=== PATIENT | male | born 1950 | race Caucasian/White ===

== ENCOUNTER 2018-03-08 10:49 | Day surgery (SDC) | payer MEDICARE, OTHER ==
[2018-03-01 13:28] VITALS: BMI 26.5
[~2018-03-08 10:49] MED LIST: ATROPINE SULFATE 0.4 MG/ML 1 ML VIAL IM ONE; LACTATED RINGERS 1,000 ML IV ONE; LACTATED RINGERS 1,000 ML IV SCH; LIDOCAINE 2% (PF) 20 MG/ML 2 ML AMP INHALATION ONE; LIDOCAINE VISCOUS 300 MG/15 ML CUP MUCOUS MEM ONE
[2018-03-08] MEDS ORDERED: GLYCOPYRROLATE 0.2 MG/ML 2 ML VIAL ONE (12:29)
[2018-03-08] MEDS ORDERED: PROPOFOL 10 MG/ML 20 ML VIAL IV ONE (12:29)
[2018-03-08] MEDS ORDERED: ROCURONIUM BROMIDE 10 MG/ML 10 ML VIAL IV ONE (12:29)
[2018-03-08] MEDS ORDERED: NEOSTIGMINE 1 MG/ML 10 ML VIAL ONE (12:29)
[2018-03-08] MEDS ORDERED: LIDOCAINE 1% INJ 10MG/ML (20 ML MDV) ONE (12:29)
[2018-03-08] MEDS ORDERED: MIDAZOLAM 2 MG/2 ML VIAL ONE (12:29)
[2018-03-08] MEDS ORDERED: fentaNYL (PF) 50 MCG/ML 2 ML AMP ONE (12:29)
[2018-03-08 14:28] VITALS: TEMP 97
[2018-03-08 14:30] VITALS: RESP 16
--- NOTE | 2018-03-08 14:59 | CT ---
EXAMINATION TYPE: CT Chest taras Donohue Protocol DATE OF EXAM: 03/08/2018 COMPARISON: None HISTORY: Bronchial navigation CT DLP: 537 mGycm Rykiel [address] Un[address] of the chest was performed with lung and mediastinal window settings submitted. The lack of contrast limits evaluation of the vascular, mediastinal and parenchymal struc tures including the upper abdomen. LUNGS: Pleural-based nodule right lower lobe posteriorly measuring 1.4 cm with peripheral spiculation . No additional nodules seen. No evidence for pleural effusion. No infiltrate or volume loss. MEDIASTINUM/NAA: Thoracic aorta is of normal caliber with limited evaluation given lack of contrast . The heart is not enlarged. No evidence for mediastinal mass. No lymph nodes greater than 1cm. UPPER ABDOMEN: No significant abnormality is seen. OTHER: No significant other abnormality. IMPRESSION: 1. Spiculated nodule right lower lobe pleural-based as noted.
--- NOTE | 2018-03-08 15:04 | XR ---
EXAMINATION TYPE: XR chest 1V portable DATE OF EXAM: 03/08/2018 HISTORY: Right lower lobe biopsy COMPARISON: None. TECHNIQUE: Single view of the chest is submitted. FINDINGS: No evidence for right-sided pneumothorax. Increased density right medial lung base. The heart is stable. Hilar and mediastinal structures are within normal limits. Degenerative changes are seen of the dorsal spine. IMPRESSION: 1. No evidence for right-sided pneumothorax. Increased density right medial lung base.
[2018-03-08 15:42] VITALS: BP 142/81; PULSE 55
--- NOTE | 2018-03-08 21:51 | OP ---
OPERATIVE REPORT Navigational bronchoscopy. OPERATORS: Dr. Lawrence and Dr. Baker. The patient's procedure took place in operating room #2 [facility]. REGISTERED NURSE SUPERVISOR/anesthesiologist provided general anesthesia. There was informed consent. There was universal timeout. After the patient was adequately under the effects of general anesthesia, the bronchoscope was inserted through the bronchoscope adapter connected to the endotracheal tube. With the variant electromagnetic navigational bronchoscopy equipment, we were able to pinpoint the lesion in the superior basal segment of the right lower lobe. Unfortunately, we only got 1 biopsy from this area. We were not able to come in contact with the lesion. Subsequently, we did do washes and brushes in this area as well. We spent about an hour or so or more trying to pinpoint this lesion and locate the lesion precisely, but again we had a difficult time doing so. We were not able to get any needle biopsies as well. The patient tolerated the procedure well. There was minimal bleeding. The bleeding stopped on its own. The bronchoscope was withdrawn. The patient will be recovered. I will talk to the patient's sister, who brought the patient today. MMODL / IJN: [id number] /
== END 2018-03-08 15:55 | disposition home or self-care (01) ==
LOC: ORWHC2ENDO 10:49
PROVIDERS: ATTEND Internal Medicine Critical Care Medicine
DX: R91.1 Solitary pulmonary nodule (principal); Z85.46 Personal history of malignant neoplasm of prostate; Z90.79 Acquired absence of other genital organ(s); Z87.891 Personal history of nicotine dependence
CPT/HCPCS: 87798 ×3; 87496; 87498; 87529 ×2; 88104; 88108; 88305; 87252; 87502; 87634; 87070; 87205; 87116; 87102; 87206; 71045; 71250; 31625; 31623; 31627; J2250; J2710; J2001; J3010; J2704

== ENCOUNTER → 2018-03-10 | Outpatient (CLI) | payer MEDICARE, OTHER ==
--- NOTE | 2018-03-12 08:27 | PE ---
EXAMINATION TYPE: PET CT fusion skull to thigh DATE OF EXAM: 03/10/2018 COMPARISON: Chest CT 2 days earlier. HISTORY: Solitary pulmonary nodule per order. History of prostate cancer. Newly diagnosed cancer on right lung biopsy 2 days earlier. TECHNIQUE: Following the intravenous administration of 12.265 mCi of F-18 FDG, whole body images are performed from the skull base to the midthigh. Images are reviewed on the computer in the coronal, axial, and sagittal planes. Reconstructed rotating images are created on independent workstation and reviewed on the computer. A noncontrast CT is performed in conjunction with the PET scan. SCAN: Initial Scan FINDINGS: SKULL BASE AND NECK: No suspicious hypermetabolic uptake is present. CHEST, MEDIASTINUM, AND HILAR REGION: Background mild underlying emphysematous change is present. The re is redemonstration of posterior-superior 1.1 cm nodule right lower lobe axial image 81. Just infer ior to this there is suspicion for enlarged right hilar lymph node measuring roughly 2.1 x 2.0 cm axi al image 84. No definitive abnormal hypermetabolic uptake is present in either. No additional nodules or suspicious adenopathy clearly seen. ABDOMEN AND PELVIS: No suspicious hypermetabolic uptake is present. OSSEOUS STRUCTURES: No suspicious hypermetabolic uptake is seen. OTHER CT: There is moderate to severe three-vessel coronary artery calcification which is noted marke r for coronary artery disease. Mild cardiomegaly is felt present. Dependent density in gallbladder is felt to reflect gallbladder sludge and/or small stones. There are 2 adjacent 2 mm calculi upper pole of left kidney axial image 133. There is single 3 mm giovanni culus upper pole of the right kidney axial image 141. There is a right periumbilical hernia containing fat and tiny mesenteric vessels axial image 171. A few diverticula are seen in the sigmoid colon. Bladder is poorly distended and thus suboptimally evaluated. There is a small fat-containing right inguinal hernia. There is multilevel facet arthropathy the lower lumbar spine. IMPRESSION: Posterior superior right lower lobe nodule and suspicious right hilar lymph node without abnormal hypermetabolic uptake in either. Correlate with recent bronchoscopy findings and pathology r esults.
== END | disposition home or self-care (01) ==
LOC: RADPETMAIN 16:42
PROVIDERS: ATTEND Internal Medicine Critical Care Medicine
DX: R91.1 Solitary pulmonary nodule (principal)
CPT/HCPCS: 78815; A9552

== ENCOUNTER 2020-06-19 04:15 | Inpatient (IN) | payer MEDICARE, OTHER ==
[2020-06-19] MEDS ORDERED: HYDROmorphone 0.5 MG/0.5 ML SYRINGE IVP STA (05:30)
[2020-06-19] MEDS ORDERED: SODIUM CHLORIDE 0.9% 500 ML 500 ML IV STA (05:30)
[2020-06-19] MEDS ORDERED: NALOXONE 0.4 MG/ML 1 ML VIAL IV PRN (05:36)
[2020-06-19] MEDS ORDERED: ONDANSETRON 4 MG/2 ML VIAL IVP PRN (05:36)
[2020-06-19 05:39] LABS: Basophils # (A) 0.2 k/uL (0-0.2); Basophils % (A) 1 %; Eosinophils # (A) 0.3 k/uL (0-0.7); Eosinophils % (A) 1 %; HCT 42.7 % (39.0-53.0); HGB 14.8 gm/dL (13.0-17.5); Lymphocytes # (A) 1.1 k/uL (1.0-4.8); Lymphocytes % (A) 5 %; MCH 32.2 pg (25.0-35.0); MCHC 34.6 g/dL (31.0-37.0); MCV 93.3 fL (80.0-100.0); Mean Platelet Volume 7.7; Monocytes # (A) 0.8 k/uL (0-1.0); Monocytes % (A) 4 %; Neutrophils # (A) 19.6 k/uL (1.3-7.7); Neutrophils % (A) 88 %; Platelet Count 281 k/uL (150-450); RBC 4.58 m/uL (4.30-5.90); RDW 12.6 % (11.5-15.5); WBC 22.2 k/uL (3.8-10.6)
[2020-06-19 05:50] LABS: ALT 179 U/L (4-49); AST 104 U/L (17-59); African American GFR (CKD) >90 (>60 ml/min/1.73 sqM); Albumin 3.4 g/dL (3.5-5.0); Alkaline Phosphatase 260 U/L (38-126); Amylase 40 U/L (30-110); Anion Gap 6 mmol/L; Blood Urea Nitrogen 14 mg/dL (9-20); Calcium 8.5 mg/dL (8.4-10.2); Carbon Dioxide 26 mmol/L (22-30); Chloride 103 mmol/L (98-107); Glucose 111 mg/dL (74-99); Lipase 20 U/L (23-300); Non-African American GFR(CKD) 89 (>60 ml/min/1.73 sqM); Potassium 4.6 mmol/L (3.5-5.1); Sodium 135 mmol/L (137-145); Total Bilirubin 5.6 mg/dL (0.2-1.3); Total Protein 6.3 g/dL (6.3-8.2)
--- NOTE | 2020-06-19 06:07 | ED ---
Abdominal Pain HPI - General Chief Complaint: Abdominal Pain Stated Complaint: ABD PAIN Time Seen by Provider: 06/19/20 04:37 Source: patient Mode of arrival: EMS Limitations: no limitations - History of Present Illness Initial Comments: This patient is a 69-year-old man who is a transfer here from [facility]. The patient had gone to the other facility tonight after he had developed epigastric cramping type pain, nausea and vomiting. He states that the pain was very similar to what he experienced prior to having his cholecystectomy in February of this year. The patient states that this had been performed at [facility]. The other facility had attempted to transfer him there for continuity of care but there was no bed availability. The patient at the other hospital was found to have elevated bilirubin at 4.7, elevated AST, ALT, alk phos. Per a verbal report, the patient had a CT scan that reportedly showed a retained stone, and the patient is transferred to have gastroenterology consult for possible ERCP. On arrival, patient states that his pain had been managed at the other facility but is starting to recur. The patient did receive dose of cefepime at approximately 1 AM. MD Complaint: abdominal pain Onset/Timin -: days(s) Location: epigastric Radiation: none Migration to: no migration Severity: moderate Quality: cramping Consistency: constant Improves With: nothing Worsens With: nothing Associated Symptoms: nausea, vomiting - Related Data Home Medications Medication Instructions Recorded Confirmed No Known Home Medications 03/01/18 03/08/18 Allergies Allergy/AdvReac Type Severity Reaction Status Date / Time Penicillins Allergy Anaphylaxis Verified 06/19/20 04:26 Review of Systems ROS Statement: Those systems with pertinent positive or pertinent negative responses have been documented in the HPI. ROS Other: All systems not noted in ROS Statement are negative. Constitutional: Denies: fever, chills Respiratory: Denies: cough, dyspnea, hemoptysis Cardiovascular: Denies: chest pain, palpitations, edema, syncope Gastrointestinal: Reports: abdominal pain, nausea, vomiting. Denies: diarrhea, constipation, hematemesis, melena, hematochezia Genitourinary: Denies: dysuria, hematuria, testicular pain Musculoskeletal: Denies: back pain Skin: Denies: rash Neurological: Denies: headache, weakness, numbness Past Medical History Past Medical History: Cancer Additional Past Medical History / Comment(s): prostate 2002 History of Any Multi-Drug Resistant Organisms: None Reported Past Surgical History: Prostate Surgery, Tonsillectomy Additional Past Surgical History / Comment(s): prostatectomy,rt hand ringer repair Past Anesthesia/Blood Transfusion Reactions: No Reported Reaction Additional Past Anesthesia/Blood Transfusion Reaction / Comment(s): no hx blood transfusion Past Psychological History: No Psychological Hx Reported Smoking Status: Former smoker Past Alcohol Use History: Daily Past Drug Use History: None Reported - Past Family History Mother Family Medical History: No Reported History Father Family Medical History: Cancer Additional Family Medical History / Comment(s): prostate General Exam Limitations: no limitations General appearance: alert, in no apparent distress Head exam: Present: atraumatic, normocephalic Eye exam: Present: normal appearance, PERRL, EOMI, scleral icterus. Absent: conjunctival injection ENT exam: Present: normal oropharynx Neck exam: Present: normal inspection Respiratory exam: Present: normal lung sounds bilaterally. Absent: respiratory distress, wheezes, rales, rhonchi, stridor Cardiovascular Exam: Present: regular rate, normal rhythm, normal heart sounds. Absent: systolic murmur, diastolic murmur, rubs, gallop GI/Abdominal exam: Present: soft, hernia. Absent: distended, tenderness, guarding, rebound, rigid, mass Extremities exam: Present: normal inspection, normal capillary refill. Absent: pedal edema, calf tenderness Back exam: Present: normal inspection. Absent: CVA tenderness (R), CVA tendern ess (L) Neurological exam: Present: alert Skin exam: Present: warm, dry, intact, other (Mild jaundice). Absent: rash Course Vital Signs 06/19/20 06/19/20 04:16 05:24 Temperature 99.4 F Pulse Rate 78 70 Respiratory 18 18 Rate Blood Pressure 103/61 111/65 O2 Sat by Pulse 95 99 Oximetry Medical Decision Making - Lab Data Result diagrams: 06/19/20 05:20 06/19/20 05:20 Lab Results 06/19/20 06/19/20 06/19/20 Range/Units 05:20 05:20 05:20 WBC 22.2 H (3.8-10.6) k/uL RBC 4.58 (4.30-5.90) m/uL Hgb 14.8 (13.0-17.5) gm/dL Hct 42.7 (39.0-53.0) % MCV 93.3 (80.0-100.0) fL MCH 32.2 (25.0-35.0) pg MCHC 34.6 (31.0-37.0) g/dL RDW 12.6 (11.5-15.5) % Plt Count 281 (150-450) k/uL MPV 7.7 Neutrophils % 88 % Lymphocytes % 5 % Monocytes % 4 % Eosinophils % 1 % Basophils % 1 % Neutrophils # 19.6 H (1.3-7.7) k/uL Lymphocytes # 1.1 (1.0-4.8) k/uL Monocytes # 0.8 (0-1.0) k/uL Eosinophils # 0.3 (0-0.7) k/uL Basophils # 0.2 (0-0.2) k/uL Sodium 135 L (137-145) mmol/L Potassium 4.6 (3.5-5.1) mmol/L Chloride 103 (98-107) mmol/L Carbon Dioxide 26 (22-30) mmol/L Anion Gap 6 mmol/L BUN 14 (9-20) mg/dL Creatinine 0.89 (0.66-1.25) mg/dL Est GFR (CKD-EPI)AfAm >90 (>60 ml/min/1.73 sqM) Est GFR (CKD-EPI)NonAf 89 (>60 ml/min/1.73 sqM) Glucose 111 H (74-99) mg/dL Plasma Lactic Acid Patrick 0.8 (0.7-2.0) mmol/L Calcium 8.5 (8.4-10.2) mg/dL Total Bilirubin 5.6 H (0.2-1.3) mg/dL AST 104 H (17-59) U/L ALT 179 H (4-49) U/L Alkaline Phosphatase 260 H (38-126) U/L Total Protein 6.3 (6.3-8.2) g/dL Albumin 3.4 L (3.5-5.0) g/dL Amylase 40 (30-110) U/L Lipase 20 L (23-300) U/L Disposition Clinical Impression: Choledocholithiasis Disposition: ADMITTED IP TO THIS HOSP Condition: Fair Is patient prescribed a controlled substance at d/c from ED?: No Referrals: None,Stated [Primary Care Provider] - 1-2 days
--- NOTE | 2020-06-19 06:12 | P.HPIM ---
History of Present Illness H&P Date: 06/19/20 Patient is a 69-year-old male with no known PMH who is a transfer from [facility] for abdominal pain. The patient reports that he underwent a cholecystectomy in February 2020, prior to that she had epigastric and right upper quadrant abdominal pain especially postprandial. Patient notes that over the past 2 days however, he began having severe epigastric discomfort, sharp in nature, 10 out of 10 (improved to a 5 out of 10 with pain medications), occasionally radiating to the back, somewhat worsened with food, with no alleviating factors. He reports an episode of nonbloody nonbilious emesis earlier today. Denied diarrhea. He denied fever, chills, chest pain, shortness of breath. Reports drinking 6 beers daily for the past several years. Patient underwent an extensive evaluation at [facility] which was all reviewed with a CT abdomen and pelvis showing diffuse intra-and extrahepatic biliary ductal dilatation status post cholecystectomy with common bile duct dilated up t o 12 mm with an 8 mm filling defect in the distal duct consistent with choledocholithiasis. Laboratory evaluation revealed a WBC count of 14.7, hemoglobin 15, platelets 299, sodium 135, potassium 4.3, chloride 100, CO2 24, BUN 14, creatinine 0.8, glucose 125, calcium 8.8, AST 121, ALT 185, T bili 4.7, direct bili 2.2, lipase 21. EKG revealed a sinus rhythm at [address]/T- wave changes noted as reviewed by me. Review of Systems Pertinent positives and negatives as discussed in HPI, a complete review of systems was performed and all other systems are negative. Past Medical History Past Medical History: Cancer Additional Past Medical History / Comment(s): prostate 2002 History of Any Multi-Drug Resistant Organisms: None Reported Past Surgical History: Prostate Surgery, Tonsillectomy Additional Past Surgical History / Comment(s): prostatectomy,rt hand ringer repair Past Anesthesia/Blood Transfusion Reactions: No Reported Reaction Additional Past Anesthesia/Blood Transfusion Reaction / Comment(s): no hx blood transfusion Past Psychological History: No Psychological Hx Reported Smoking Status: Former smoker Past Alcohol Use History: Daily Past Drug Use History: None Reported - Past Family History Mother Family Medical History: No Reported History Father Family Medical History: Cancer Additional Family Medical History / Comment(s): prostate Medications and Allergies Home Medications Medication Instructions Recorded Confirmed Type No Known Home Medications 03/01/18 03/08/18 History Allergies Allergy/AdvReac Type Severity Reaction Status Date / Time Penicillins Allergy Anaphylaxis Verified 06/19/20 04:26 Physical Exam Vitals: Vital Signs Temp Pulse Resp BP Pulse Ox 06/19/20 05:24 70 18 111/65 99 06/19/20 04:16 99.4 F 78 18 103/61 95 Intake and Output 06/18/20 06/18/20 06/19/20 14:59 22:59 06:59 Other: Weight 79.379 kg General: non toxic, no distress, appears at stated age, normal weight Derm: no unusual rashes/lesions no unusual ecchymoses, warm, dry Head: atraumatic, normocephalic, symmetric Eyes: EOMI, no lid lag, anicteric sclera, pupils equal round reactive to light ENT: Nose and ears atraumatic, no thrush, no pharyngeal erythema Neck: No thyromegaly, no cervical lymphadenopathy, trachea midline, supple Mouth: no lip lesion, mucus membranes moist Cardiovascular: S1S2 reg, no murmur, positive posterior tibial pulse bilateral, no edema, capillary refill less than 2 seconds Lungs: CTA bilateral, no rhonchi, no rales , no accessory muscle use Abdominal: soft, epigastric tenderness to palpation, no guarding, no appreciable organomegaly, normal bowel sounds Ext: no gross muscle atrophy, muscle strength 5 out of 5 in all 4 extremities grossly, no contractures, Neuro: CN II-XI grossly intact, light touch intact all 4 extremities, finger to nose within normal limits, Psych: Alert, oriented, appropriate affect Results CBC & Chem 7: 06/19/20 05:20 06/19/20 05:20 Labs: Abnormal Lab Results - Last 24 Hours (Table) 06/19/20 06/19/20 Range/Units 05:20 05:20 WBC 22.2 H (3.8-10.6) k/uL Neutrophils # 19.6 H (1.3-7.7) k/uL Sodium 135 L (137-145) mmol/L Glucose 111 H (74-99) mg/dL Total Bilirubin 5.6 H (0.2-1.3) mg/dL AST 104 H (17-59) U/L ALT 179 H (4-49) U/L Alkaline Phosphatase 260 H (38-126) U/L Albumin 3.4 L (3.5-5.0) g/dL Lipase 20 L (23-300) U/L Assessment and Plan Plan: Choledocholithiasis with suspected cholangitis -GI consult for ERCP -Zosyn for suspected cholangitis -Nothing by mouth for now -Antiemetics -Monitor CMP DVT prophylaxis -Heparin subq The patient is admitted with an anticipated greater than 2 midnight stay for evaluation of choledocholithiasis CODE STATUS: Full Code Discussed with: Patient Anticipated discharge date: 2-[address]: Home A total of 40 minutes was spent on the care of this complex patient more than 50% of the time was spent in counseling and care coordination.
[2020-06-19] MEDS: metroNIDAZOLE 500 MG TAB PO SCH ×4 (06:31→23:20)
[2020-06-19] MEDS: SODIUM CHLORIDE 0.9% 1,000 ML IV SCH ×3 (06:31→19:40)
[2020-06-19] MEDS: HYDROmorphone 0.5 MG/0.5 ML SYRINGE IVP PRN ×6 (08:47→23:22)
--- NOTE | 2020-06-19 13:24 | ECHOF ---
Referral Reason:surgery clearance MEASUREMENTS -------- HEIGHT: 177.8 cm WEIGHT: 79.4 kg BP: 105/63 IVSd: 1.2 cm (0.6 - 1.1) LVIDd: 4.1 cm (3.9 - 5.3) LVPWd: 1.1 cm (0.6 - 1.1) EDV(Teich): 76 ml IVSs: 1.8 cm LVIDs: 2.6 cm LVPWs: 1.7 cm %IVS Thck: 46 % ESV(Teich): 25 ml EF(Teich): 67 % %FS: 37 % SV(Teich): 51 ml LA Diam: 3.3 cm (2.7 - 3.8) RVIDd: 3.4 cm (< 3.3) LUIS ENRIQUE Planimetry: 1.5 cm LALs A4C: 4.5 cm LAAs A4C: 14.5 cm LAESV A-L A4C: 40 ml LAESV MOD A4C: 31 ml LALs A2C: 5.8 cm LAAs A2C: 20.1 cm LAESV A-L A2C: 60 ml LAESV MOD A2C: 51 ml LAESV(A-L): 56 ml LAESV Index (A-L): 28.23 ml/m Ao Diam: 3.3 cm (2.0 - 3.7) AV Cusp: 1.8 cm (1.5 - 2.6) EPSS: 0.8 cm MV E Danie: 1.09 m/s MV DecT: 263 ms MV Dec [place]: 4.1 m/s MV A Danie: 0.94 m/s MV E/A Ratio: 1.15 MV PHT: 76 ms LVOT Vmax: 1.39 m/s LVOT maxP.71 mmHg AV Vmax: 2.78 m/s AV maxP.98 mmHg AV Vmax: 2.87 m/s AV Vmean: 2.11 m/s AV maxP.02 mmHg AV meanP.31 mmHg AV Env.Ti: 235 ms AV VTI: 49.5 cm TR Vmax: 3.53 m/s TR maxP.86 mmHg RAP: 5.00 mmHg RVSP: 54.86 mmHg MV EF SLOPE: 97.64 mm/s (70 - 150) MV EXCURSION: 20.13 mm (> 18.000) FINDINGS -------- Sinus rhythm. This was a technically adequate study. The left ventricular size is normal. There is borderline concentric left ventricular hypertrophy. Overall left ventricular systolic function is normal with, an EF between 55 - 60 %. The right ventricle is mildly enlarged. Normal LA size by volume 22+/-6 ml/m2. The right atrial size is normal. Interatrial and interventricular septum intact. There is mild aortic valve sclerosis. There is mild aortic regurgitation. There is mild aortic st enosis present. Peak/mean gradient across the Aortic Valve is 33.02mmHg / 19.31mmHg. AOV is possi ble Bicuspid. The mitral valve is normal. Mild mitral regurgitation is present. Mild tricuspid regurgitation present. There is moderate to severe pulmonary hypertension. The rig ht ventricular systolic pressure, as measured by Doppler, is 54.86mmHg. Trace/mild (physiologic) pulmonic regurgitation. The aortic root size is normal. IVC Not well visulized. There is no pericardial effusion. CONCLUSIONS -------- 1. There is borderline concentric left ventricular hypertrophy. 2. Overall left ventricular systolic function is normal with, an EF between 55 - 60 %. 3. The right ventricle is mildly enlarged. 4. Normal LA size by volume 22+/-6 ml/m2. 5. There is mild aortic valve sclerosis. 6. There is mild aortic regurgitation. 7. There is mild aortic stenosis present. 8. Peak/mean gradient across the Aortic Valve is 33.02mmHg / 19.31mmHg. 9. AOV is possible Bicuspid. 10. Mild mitral regurgitation is present. 11. Mild tricuspid regurgitation present. 12. There is moderate to severe pulmonary hypertension. 13. Trace/mild (physiologic) pulmonic regurgitation. 14. There is no pericardial effusion. BEHAVIORAL SCIENCES INSTRUCTOR: Shy Mtz RDCS
--- NOTE | 2020-06-19 14:44 | P.PN ---
Progress Note - Text Progress Note Date: 06/19/20 Pt seen and examined today. I agree with the plan as documented in the H&P. On exam, I noted patient has bounding JVD, and will place order for echocardiogram. The results were reviewed and patient has moderate to severe pHTN, but no evidence of heart failure. Class II causes are ruled out leaving, Classes I, III, IV or V. Patient does not have a history or risk factors for CAMPBELL. He was a former smoker but quit, no history of COPD. Could potentially benefit from CT with IV contrast to rule out vascular etiology of pHTN after GI evaluation Ordered CXR to look for pulmonary fibrosis I asked for a pulmonary consult for further evaluation.
--- NOTE | 2020-06-19 17:59 | P.CNPUL ---
History of Present Illness Consult date: 06/19/20 Requesting physician: Ct Joshi Reason for consult: other Chief complaint: Moderate to severe pulmonary hypertension History of present illness: 69-year-old white patient, former smoker, quit smoking in 2018, did smoke for 20+ years, history of prostate cancer, that used to follow with Dr. Lawrence in the pulmonary clinic, however has not seen him for a while, since 2018. Patient was following with Dr. Lawrence for a lesion in the right lower lobe and an enlarged spiculated right hilar lymph node in 2018, and his PET scan at the time was suspicious for malignancy, patient underwent an electromagnetic navigational bronchoscopy with negative biopsy. A repeat PET scan was actually negative. On 06/19/2020 patient was transferred from [facility] where she went for evaluation of epigastric cramping type pain, nausea and vomiting. Patient had similar symptoms prior to having his cholecystectomy in February of this year she was done at [facility]. His bilirubin was elevated at 5.6, he also had elevated AST, of 104, ALT of 179, and alkaline phosphatase of 260. E levated white blood count of 22.2, hemoglobin is 14.8, sodium is 135, and the rest of electrolytes and renal profile were unremarkable, plasma lactic acid was 0.8 amylase was 40, lipase was 20. Computed tomography scan was completed at [facility] and reportedly showed a retained gallbladder stone, and patient was transferred to [facility] with gastroenterology consult for possible ERCP. He was started on empiric antibiotics with Rocephin and Flagyl. He is receiving IV hydration with 0.9 normal saline at a rate of 125 ML per hour. Patient is scheduled for ERCP tomorrow on 06/12/2020, echocardiogram was completed for cardiac clearance. Echocardiogram revealed borderline concentric LVH, EF between 55-60%, mild aortic regurgitation, mild aortic stenosis, aortic valve is possibly bicuspid, mild MR, mild TR, moderately severe pulmonary hypertension with PA pressure of 54.8 mmHg. Chest x-ray is pending, patient is currently on room air with pulse ox of 93-99%, hemodynamically she is stable, they have all a low-grade fever earlier today, his no worsening dyspnea, no plates of chest pain, no cough, no wheezing, no evidence of heart failure. Review of Systems All systems: negative Constitutional: Denies chills, Denies fever Eyes: denies blurred vision, denies pain Ears, nose, mouth and throat: Denies headache, Denies sore throat Cardiovascular: Denies chest pain, Denies shortness of breath Respiratory: Denies cough Gastrointestinal: Reports abdominal pain, Reports dyspepsia, Denies diarrhea, Denies nausea, Denies vomiting Musculoskeletal: Denies myalgias Integumentary: Denies pruritus, Denies rash Neurological: Denies numbness, Denies weakness Psychiatric: Denies anxiety, Denies depression Endocrine: Denies fatigue, Denies weight change Past Medical History Past Medical History: Cancer Additional Past Medical History / Comment(s): prostate 2002 History of Any Multi-Drug Resistant Organisms: None Reported Past Surgical History: Prostate Surgery, Tonsillectomy Additional Past Surgical History / Comment(s): prostatectomy,rt hand ringer repair Past Anesthesia/Blood Transfusion Reactions: No Reported Reaction Additional Past Anesthesia/Blood Transfusion Reaction / Comment(s): no hx blood transfusion Past Psychological History: No Psychological Hx Reported Smoking Status: Former smoker Past Alcohol Use History: Daily Past Drug Use History: None Reported - Past Family History Mother Family Medical History: No Reported History Father Family Medical History: Cancer Additional Family Medical History / Comment(s): prostate Medications and Allergies Home Medications Medication Instructions Recorded Confirmed Type Vitamin D3(Unknown Dose) 1 tab PO DAILY 06/19/20 06/19/20 History Allergies Allergy/AdvReac Type Severity Reaction Status Date / Time amoxicillin [From Augmentin] Allergy Rash/Hives Verified 06/19/20 06:23 clavulanic acid Allergy Rash/Hives Verified 06/19/20 06:23 [From Augmentin] Penicillins Allergy Rash/Hives Verified 06/19/20 06:23 Physical Exam Vitals: Vital Signs Temp Pulse Pulse Resp BP BP Pulse Ox 06/19/20 14:53 98.4 F 93 18 103/54 93 L 06/19/20 07:00 100.3 F H 82 18 105/63 93 L 06/19/20 05:24 70 18 111/65 99 06/19/20 04:16 99.4 F 78 18 103/61 95 Intake and Output 06/19/20 06/19/20 06/19/20 06:59 14:59 22:59 Other: Weight 79.379 kg 79.379 kg GENERAL EXAM: Alert, very pleasant, 69-year-old white male, on room air, with a pulse ox of 93%, comfortable in no apparent distress. HEAD: Normocephalic/atraumatic. EYES: Normal reaction of pupils, equal size. Conjunctiva pink, sclera white. NOSE: Clear with pink turbinates. THROAT: No erythema or exudates. NECK: No masses, no JVD, no thyroid enlargement, no adenopathy. CHEST: No chest wall deformity. Symmetrical expansion. LUNGS: Equal air entry with no crackles, wheeze, rhonchi or dullness. CVS: Regular rate and rhythm, normal S1 and S2, no gallops, no murmurs, no rubs ABDOMEN: Soft, nontender. No hepatosplenomegaly, normal bowel sounds, no guarding or rigidity. EXTREMITIES: No clubbing, no edema, no cyanosis, 2+ pulses and upper and lower extremities. MUSCULOSKELETAL: Muscle strength and tone normal. SPINE: No scoliosis or deformity SKIN: No rashes CENTRAL NERVOUS SYSTEM: Alert and oriented -3. No focal deficits, tone is normal in all 4 extremities. PSYCHIATRIC: Alert and oriented -3. Appropriate affect. Intact judgment and insight. Results - Laboratory Findings CBC and BMP: 06/19/20 05:20 06/19/20 05:20 Abnormal lab findings: Abnormal Labs 06/19/20 06/19/20 05:20 05:20 WBC 22.2 H Neutrophils # 19.6 H Sodium 135 L Glucose 111 H Total Bilirubin 5.6 H AST 104 H ALT 179 H Alkaline Phosphatase 260 H Albumin 3.4 L Lipase 20 L Assessment and Plan Plan: Assessment: #1. Moderately severe pulmonary hypertension, there is no evidence of significant valvular disease on echocardiogram, will obtain CTA chest to rule out possibility of pulmonary embolism although this is less likely, and obtain follow-up on the right lung lesion since 2018. There is a possibility of underlying COPD due to previous history of smoking #2. Epigastric pain, related to choledocholithiasis, with obstructive jaundice, patient has been scheduled for ERCP on 06/12/2020 #3. Elevated transaminases, elevated bilirubin related to obstructive jaundice #4. Leukocytosis, fever, likely related to sepsis related to gallbladder stones #5. Recent history of cholecystectomy in February 2020 #6. Previous history of smoking, in remission, did smoke for 20+ years #7. History of prostate cancer with prostatectomy #7. History of right lower lobe lung lesion and pleural-based spiculated lung nodule measuring 1.4 cm with peripheral spiculation in 2018, status post electromagnetic navigational bronchoscopy with biopsies, that were negative for malignancy, and subsequent PET scan showed no hypermetabolic activity in the right lower lobe nodule or suspicious right hilar lymph node, and the biopsies were negative. Plan: We'll obtain CTA chest to rule out possibility of pulmonary embolism, and obtain a follow-up on the right lung nodule and pulmonary lesion that was biopsied back in 2018. Echocardiogram reviewed, showing no evidence of significant valvular disease, patient has moderately severe pulmonary hypertension, he is maintaining good O2 saturations on room air, possibly his PA pressures are elevated related to underlying COPD. At any rate patient is being treated for acute cholecystitis with acute choledocholithiasis. We'll review the findings of the CTA chest once it is completed. We'll continue to follow I performed a history & physical examination of the patient and discussed their management with my nurse practitioner, Sherley Perez. I reviewed the nurse practitioner's note and agree with the documented findings and plan of care. Lung sounds are positive for diminished breath sounds. The findings and the impression was discussed with the patient. I attest to the documentation by the nurse practitioner. Time with Patient: Greater than 30
--- NOTE | 2020-06-19 19:03 | XR ---
EXAMINATION TYPE: XR chest 2V DATE OF EXAM: 06/19/2020 COMPARISON: 03/08/2018 HISTORY: Pulmonary hypertension. TECHNIQUE: FINDINGS: There is mild coarsening of interstitial markings. Heart size is normal. There is no heart failure. There are no hilar masses. Costophrenic angles are clear. Bony thorax is intact. IMPRESSION: Chronic interstitial pulmonary density consistent with fibrosis that is slightly more jose n last exam. Normal heart. No heart failure.
--- NOTE | 2020-06-19 19:08 | CT ---
EXAMINATION TYPE: CT angio chest DATE OF EXAM: 06/19/2020 COMPARISON: 03/08/2018 HISTORY: SOB CT DLP: 298.5 mGycm Automated exposure control for dose reduction was used. CONTRAST: Performed with IV Contrast, patient injected with 80cc mL of Isovue 370. There are 3-D post processed images. There is 2.5 cm masslike infiltrate adjacent to the pleura in the superior segment right lower lobe. There is patchy pleural thickening in the right posterior lung base. Heart size is fairly normal. The re is no pericardial effusion. There are bilateral enlarged bronchial lymph nodes that measure up to 1.5 cm. There is no mediastinal adenopathy. Thoracic aorta shows no aneurysm or dissection. There is coronary artery calcification. There is normal contrast opacification of the pulmonary arteries. There are no filling defects. Thoracic spine is intact. Sternum is intact. IMPRESSION: No evidence of pulmonary embolism. There is right lower lobe masslike infiltrate increased compared t o last CT scan and suspicious for tumor. There is increased pleural thickening right posterior lung b ase compared to old exam. There are increased bronchial lymph nodes on the right side compared to old exam.
[2020-06-20] MEDS: ACETAMINOPHEN TAB 325 MG TAB PO PRN (01:41)
[2020-06-20] MEDS: SODIUM CHLORIDE 0.9% 1,000 ML IV SCH ×3 (05:38→17:38)
[2020-06-20] MEDS: metroNIDAZOLE 500 MG TAB PO SCH ×3 (08:22→23:08)
[2020-06-20] MEDS: CHOLECALCIFEROL 1,000 UNIT TAB PO SCH (08:23)
[2020-06-20] MEDS: HYDROmorphone 0.5 MG/0.5 ML SYRINGE IVP PRN (08:31)
[2020-06-20] MEDS ORDERED: INDOMETHACIN 50MG SUPPOSITORY RECTAL ONE (09:30)
[2020-06-20] MEDS ORDERED: PHENYLEPHRINE-0.9% NACL SYG 1 MG/10 ML SYRINGE ONE (11:25)
[2020-06-20] MEDS ORDERED: LIDOCAINE 1% INJ 10MG/ML (20 ML MDV) ONE (11:25)
[2020-06-20] MEDS ORDERED: PROPOFOL 10 MG/ML 20 ML VIAL IV ONE (11:25)
[2020-06-20] MEDS ORDERED: fentaNYL (PF) 50 MCG/ML 2 ML AMP ONE (11:25)
[2020-06-20] MEDS ORDERED: MIDAZOLAM 2 MG/2 ML VIAL ONE (11:25)
[2020-06-20] MEDS ORDERED: SUCCINYLCHOLINE CHLORIDE 100 MG/5 ML SYR IV ONE (11:25)
[2020-06-20] MEDS ORDERED: GLYCOPYRROLATE 0.2 MG/ML 2 ML VIAL ONE (11:25)
[2020-06-20] MEDS ORDERED: IV FLUID CONTINUATION 1,000 ML IV ONE ×2 (11:32)
--- NOTE | 2020-06-20 11:40 | P.CONS ---
History of Present Illness - Reason for Consult Consult date: 06/19/20 Choledocholithiasis, elevated liver enzymes Requesting physician: aBrb Ovalle - Chief Complaint Abdominal pain, nausea and vomiting - History of Present Illness 69-year-old male with a medical history significant for prostate cancer, tobacco abuse and recent cholecystectomy in February 2020 who presented to an outside facility with complaints of abdominal pain, nausea and vomiting. The patient reported severe epigastric abdominal pain. Pain was constant with radiation throughout his whole abdomen and into the back. She reported multiple episodes of nausea and vomiting in association with his symptoms. The patient also noted yellowing of his skin and eyes as well as dark colored urine. He denies any fevers, chills, chest pain or change in bowel habits. He does have a significant history of alcohol use drinking approximately 6 beers daily for the past several years. He presented to the outside facility where computed tomography scan of the abdomen and pelvis were performed showing diffuse intra- and extrahepatic biliary dilation with evidence of prior cholecystectomy and a dilated common bile duct at 12 mm with an 8 mm filling defect in the distal CBD. Patient's laboratory studies were significant for total bilirubin 5.6, alkaline phosphatase 560, AST 104 and ALT 179 with a WBC of 22 a hemoglobin of 14.8 and a platelet count of 281,000. Review of Systems REVIEW OF SYSTEMS: CONSTITUTIONAL: Denies any fevers, chills, weight change or fatigue. CARDIOVASCULAR: Denies any chest pain, palpitations high or low blood pressures RESPIRATORY: Denies any shortness of breath, hemoptysis or cough. GENITOURINARY: No dysuria or hematuria. MUSCULOSKELETAL: No weakness reported. SKIN: Denies any new rashes or lesions, pallor but does report jaundice. PSYCHIATRIC: Denies any depression or anxiety. NEUROLOGY: Denies headache, denies any new focal deficits. EARS/NOSE/THROAT: No recent hearing change, congestion, nasal discharge or sore throat. EYES: No pain in eyes, discharge or change in vision, but does note yellowing of the eyes. GASTROINTESTINAL: As per HPI. Past Medical History Past Medical History: Cancer Additional Past Medical History / Comment(s): prostate 2002 History of Any Multi-Drug Resistant Organisms: None Reported Past Surgical History: Prostate Surgery, Tonsillectomy Additional Past Surgical History / Comment(s): prostatectomy,rt hand ringer repair Past Anesthesia/Blood Transfusion Reactions: No Reported Reaction Additional Past Anesthesia/Blood Transfusion Reaction / Comm: no hx blood transfusion Past Psychological History: No Psychological Hx Reported Smoking Status: Former smoker Past Alcohol Use History: Daily Past Drug Use History: None Reported - Past Family History Mother Family Medical History: No Reported History Father Family Medical History: Cancer Additional Family Medical History / Comment(s): prostate Medications and Allergies Home Medications Medication Instructions Recorded Confirmed Type Vitamin D3(Unknown Dose) 1 tab PO DAILY 06/19/20 06/19/20 History Allergies Allergy/AdvReac Type Severity Reaction Status Date / Time amoxicillin [From Augmentin] Allergy Rash/Hives Verified 06/19/20 06:23 clavulanic acid Allergy Rash/Hives Verified 06/19/20 06:23 [From Augmentin] Penicillins Allergy Rash/Hives Verified 06/19/20 06:23 Physical Exam Vitals: Vital Signs Temp Pulse Pulse Resp BP BP Pulse Ox 06/19/20 07:00 100.3 F H 82 18 105/63 93 L 06/19/20 05:24 70 18 111/65 99 06/19/20 04:16 99.4 F 78 18 103/61 95 Intake and Output 06/18/20 06/19/20 06/19/20 22:59 06:59 14:59 Other: Weight 79.379 kg On physical examination, patient appears comfortable in no apparent distress. HEAD: Normocephalic, atraumatic. EYES: Scleral icterus. No conjunctival injection. MOUTH: No lesions, tongue midline. NECK: Trachea midline, no gross abnormalities. CHEST: Clear to auscultation with no wheezing or rhonchi appreciated. HEART: Regular rate and rhythm. ABDOMEN: Soft, thin and moderately tender to palpation. Bowel sounds are positive. No organomegaly. No guarding or rigidity. EXTREMITIES: No pedal edema. SKIN: No rashes, jaundice. NEUROLOGIC: Alert and oriented x3. No focal deficits. Results CBC & Chem 7: 06/19/20 05:20 06/19/20 05:20 Labs: Abnormal Lab Results - Last 24 Hours (Table) 06/19/20 06/19/20 Range/Units 05:20 05:20 WBC 22.2 H (3.8-10.6) k/uL Neutrophils # 19.6 H (1.3-7.7) k/uL Sodium 135 L (137-145) mmol/L Glucose 111 H (74-99) mg/dL Total Bilirubin 5.6 H (0.2-1.3) mg/dL AST 104 H (17-59) U/L ALT 179 H (4-49) U/L Alkaline Phosphatase 260 H (38-126) U/L Albumin 3.4 L (3.5-5.0) g/dL Lipase 20 L (23-300) U/L CT scan - abdomen: report reviewed (computed tomography scan of the abdomen and pelvis were performed showing diffuse intra-and extrahepatic biliary dilation with evidence of prior cholecystectomy and a dilated common bile duct at 12 mm with an 8 mm filling defect in the distal CBD.) Assessment and Plan (1) Choledocholithiasis Narrative/Plan: 69-year-old male with multiple medical comorbidities status post cholecystectomy in February 2022 presented to [facility] with complaints of abdominal pain, nausea and vomiting. Patient was found to have markedly elevated liver enzymes currently with total bilirubin 5.6, alkaline phosphatase 260, AST 104 and ALT 179, computed tomography scan which was performed in evaluation showing diffuse intra-and extrahepatic biliary dilation with evidence of prior cholecystectomy and a dilated common bile duct at 12 mm with an 8 mm filling defect in the distal CBD. Symptoms likely secondary to choledocholithiasis, concern is also possible cholangitis given elevation in white blood cell count at 22 on presentation currently the patient is on broad-spectrum antibiotic therapy with plan for ERCP. Current Visit: Yes Status: Acute Code(s): K80.50 - CALCULUS OF BILE DUCT W/O CHOLANGITIS OR CHOLECYST W/O OBST SNOMED Code(s): 934702331 (2) Elevated liver enzymes Current Visit: Yes Status: Acute Code(s): R74.8 - ABNORMAL LEVELS OF OTHER SERUM ENZYMES SNOMED Code(s): 801235060 Plan: Supportive care Clear liquid diet Nothing by mouth after midnight Continue to monitor CBC, BMP, LFTs Continue broad-spectrum antibiotic therapy with ceftriaxone and Flagyl therapy Plan is for ERCP tomorrow with Indocin to be given preprocedure Thank you for allowing us to participate in the care of the patient we will continue to follow
[2020-06-20] MEDS ORDERED: IOPAMIDOL-300 50ML BTL INJ ONE (12:23)
--- NOTE | 2020-06-20 12:58 | P.PN ---
Subjective Progress Note Date: 06/20/20 No new complaints today. Plan for ERCP. Objective - Vital Signs Vital signs: Vital Signs Temp 97.1 F L 06/20/20 07:37 Pulse 64 06/20/20 07:37 Resp 20 06/20/20 08:10 BP 105/65 06/20/20 07:37 Pulse Ox 95 06/20/20 07:37 Intake & Output 06/19/20 06/20/20 06/20/20 18:59 06:59 18:59 Intake Total 300 Output Total 230 950 Balance -230 -950 300 Weight 79.379 kg Intake: IV 300 Output: Urine 230 950 Other: Voiding Method Toilet Toilet Urinal Urinal # Voids 3 2 - Exam Gen: awake, alert HEENT: normocephalic, atraumatic, good hearing acuity, moist mucous membranes Resp: CTAB, good air exchange, no accessory muscle use, no wheezes, crackles, rhonchi CVS: good distal perfusion x 4, RRR, no murmurs, clicks, gallops, +JVD GI: soft, NTTP, ND : no SPT, no CVAT, giles catheter not present MSK: no pitting edema, no clubbing Neuro: non-focal, no sensory deficits, appropriate tone Psych: cooperative, euthymic mood - Labs CBC & Chem 7: 06/19/20 05:20 06/19/20 05:20 Assessment and Plan Assessment: Choledocholithiasis with suspected cholangitis -GI consult for ERCP -ceftriaxone/flagyl for suspected cholangitis -Nothing by mouth for now -Antiemetics -Monitor CMP Moderate to Severe Pulmonary Hypertension - unclear etiology, but unlikely to be class II, echo with RVSP of 73 - may be class III related to former smoking history - CTEPH unlikely given no pulmonary embolism on CT Thorax - Class I, Class V etiologies still being considered - pulmonary consult, appreciate recs DVT prophylaxis -Heparin subq The patient is admitted with an anticipated greater than 2 midnight stay for evaluation of choledocholithiasis CODE STATUS: Full Code Discussed with: Patient Anticipated discharge date: 2-[address]: Home
--- NOTE | 2020-06-20 13:07 | P.PCN ---
Date of Procedure: 06/20/20 Description of Procedure: Brief history: 69-year-old male with a medical history significant for prostate cancer, tobacco abuse and recent cholecystectomy in February 2020 who presented to an outside facility with complaints of abdominal pain, nausea and vomiting. The patient reported severe epigastric abdominal pain. Pain was constant with radiation throughout his whole abdomen and into the back. She reported multiple episodes of nausea and vomiting in association with his symptoms. The patient also noted yellowing of his skin and eyes as well as dark colored urine. He denies any fevers, chills, chest pain or change in bowel habits. He does have a significant history of alcohol use drinking approximately 6 beers daily for the past several years. He presented to the outside facility where computed tomography scan of the abdomen and pelvis were performed showing diffuse intra-and extrahepatic biliary dilation with evidence of prior cholecystectomy and a dilated common bile duct at 12 mm with an 8 mm filling defect in the distal CBD. Patient's laboratory studies were significant for total bilirubin 5.6, alkaline phosphatase 560, AST 104 and ALT 179 with a WBC of 22 a hemoglobin of 14.8 and a platelet count of 281,000. Procedure performed: ERCP with sphincterotomy, cholangiography and balloon sweep for choledocholithiasis and cholangitis Preoperative diagnoses: Choledocholithiasis, cholangitis IV sedation per anesthesia Estimated blood loss: Minimal. Procedure: After informed consent was obtained from the patient and after the risks benefits and complications including bleeding perforation and pancreatitis explained in detail the patient was brought into the endoscopy unit. The patient was placed in prone position and IV conscious sedation was administered by anesthesia under continuous monitoring. The Olympus side-viewing duodenoscope was then inserted into the mouth and esophagus intubated without any difficulty. The scope was gradually advanced into the stomach and duodenum. The major papilla was identified without any difficulty. The ampulla appeared somewhat prominent. Cannulation was performed with an autotome with a wire passed into the CBD. Cholangiogram was then performed with injection of dye into the CBD with evidence of a diffusely dilated common bile duct with a distal filling defect. The intrahepatics were identified. An 8 mm sphincterotomy was then performed. The autotome was then exchanged over the wire for a balloon extractor which was used to serially sweep the duct at 8.5 mm and 11.5 mm. A large amount of pus, sludge and a 5 mm stone were removed from the common bile duct. The pancreatic duct was not injected or cannulated. The patient tolerated the procedure well. Impression: ERCP with sphincterotomy, cholangiography and balloon sweep of the common bile duct productive of sludge, pus and a CBD stone. Recommendations: The findings of this examination were discussed with the patient. Okay for full liquid diet. Continue antibiotic therapy. Monitor for signs or symptoms of pancreatitis. Okay for full liquid diet and advance as tolerated.
--- NOTE | 2020-06-20 13:21 | FL ---
EXAMINATION TYPE: FL ERCP DATE OF EXAM: 06/20/2020 CLINICAL HISTORY: Biliary dilatation. TECHNIQUE: Fluoroscopy. COMPARISON: Outside CT from yesterday.. FINDINGS: Fluoroscopic guidance was provided during ERCP procedure performed by GI . A total of 2 6 seconds of fluoroscopic time was utilized during the procedure and 3 spot images was acquired. Plea se refer to procedure note for further details. IMPRESSION: As Above.
[2020-06-21] MEDS: SODIUM CHLORIDE 0.9% 1,000 ML IV SCH ×2 (05:52→12:28)
[2020-06-21 07:44] VITALS: BP 101/52; PULSE 52; RESP 20; TEMP 97.9
[2020-06-21] MEDS: metroNIDAZOLE 500 MG TAB PO SCH ×2 (08:03→12:25)
[2020-06-21] MEDS: CHOLECALCIFEROL 1,000 UNIT TAB PO SCH (08:04)
[2020-06-21] MEDS: ACETAMINOPHEN TAB 325 MG TAB PO PRN (08:14)
[2020-06-21 09:58] LABS: Basophils # (A) 0.1 k/uL (0-0.2); Basophils % (A) 1 %; Eosinophils # (A) 0.3 k/uL (0-0.7); Eosinophils % (A) 2 %; HCT 39.2 % (39.0-53.0); HGB 13.2 gm/dL (13.0-17.5); Lymphocytes % (A) 9 %; MCH 31.7 pg (25.0-35.0); MCHC 33.6 g/dL (31.0-37.0); MCV 94.2 fL (80.0-100.0); Mean Platelet Volume 8.9; Monocytes # (A) 0.4 k/uL (0-1.0); Monocytes % (A) 3 %; Neutrophils # (A) 9.9 k/uL (1.3-7.7); Neutrophils % (A) 84 %; Platelet Count 162 k/uL (150-450); RBC 4.16 m/uL (4.30-5.90); RDW 12.6 % (11.5-15.5); WBC 11.8 k/uL (3.8-10.6)
--- NOTE | 2020-06-21 13:37 | P.DS ---
Providers Date of admission: 06/19/20 05:36 Expected date of discharge: 06/21/20 Attending physician: Barb Ovalle MD Consults: 06/19/20 14:33 Consult Physician Routine Consulting Provider: Elmer Vicente Consult Reason/Comments: moderate to severe pulmonary hypertension, not class II; Do you want consulting provider notified?: Yes Primary care physician: Stated None Hospital Course: 1. Sepsis 2. Choledocholithiasis with Cholangitis 3. Moderate to Severe Pulmonary Hypertension 69 year old man presented with severe abdominal pain as transfer from [facility] with background of recent cholecystectomy, and was found to have diffuse intra- and extrahepatic biliary ductal dilation on CT A/P as well as fevers, WBC elevation, and hyperbilirubinemia with cholestatic elevated liver enzymes. He was transferred to our hospital for ERCP due to suspected cholangitis. During workup, he had echo done which incidentally found mod- severe pulmonary hypertension, possibly related to smoking, but also with evidence of increasing RLL infiltrate. Patient underwent ERCP with sphincterectomy and removal of large CBD stone and drainage of pus behind the stone. Following this procedure, he felt much better, and requested discharge home. He was prescribed cipro/flagyl for total of 7 more days. He will follow up with PCP to gain appropriate referrals given echo and CT Chest findings. I spent more than 30 minutes preparing this discharge. Assessment: Gen: awake, alert HEENT: normocephalic, atraumatic, good hearing acuity, moist mucous membranes Resp: CTAB, good air exchange, no accessory muscle use, no wheezes, crackles, rhonchi CVS: good distal perfusion x 4, RRR, no murmurs, clicks, gallops, +JVD GI: soft, NTTP, ND : no SPT, no CVAT, giles catheter not present MSK: no pitting edema, no clubbing Neuro: non-focal, no sensory deficits, appropriate tone Psych: cooperative, euthymic mood Patient Condition at Discharge: Good Plan - Discharge Summary New Discharge Prescriptions: New Ciprofloxacin HCl [Cipro] 500 mg PO Q12HR 7 Days #14 tab metroNIDAZOLE [Flagyl] 500 mg PO Q8HR 7 Days #21 tab Acetaminophen Tab [Tylenol] 650 mg PO Q4HR PRN tab PRN Reason: Fever And/ Or Pain Continue Vitamin D3(Unknown Dose) 1 tab PO DAILY Discharge Medication List Vitamin D3(Unknown Dose) 1 tab PO DAILY 06/19/20 [History] Acetaminophen Tab [Tylenol] 650 mg PO Q4HR PRN tab 06/21/20 [Rx] Ciprofloxacin HCl [Cipro] 500 mg PO Q12HR 7 Days #14 tab 06/21/20 [Rx] metroNIDAZOLE [Flagyl] 500 mg PO Q8HR 7 Days #21 tab 06/21/20 [Rx] Follow up Appointment(s)/Referral(s): Manuel Lawrence DO [Doctor of Osteopathic Medicine] - 1 Week None,Stated [Primary Care Provider] - 1-2 days Donavan Campuzano MD [STAFF PHYSICIAN] - 1 Week Michael Hughes MD [STAFF PHYSICIAN] - 1 Week Patient Instructions/Handouts: ERCP (Endoscopic Retrograde Cholangiopancreatography) (DC) Discharge Disposition: HOME SELF-CARE
--- NOTE | 2020-06-21 14:05 | P.PN ---
Subjective Progress Note Date: 06/21/20 Principal diagnosis: Pulmonary hypertension 69-year-old white patient, former smoker, quit smoking in 2018, did smoke for 20+ years, history of prostate cancer, that used to follow with Dr. Lawrence in the pulmonary clinic, however has not seen him for a while, since 2018. Patient was following with Dr. Lawrence for a lesion in the right lower lobe and an enlarged spiculated right hilar lymph node in 2018, and his PET scan at the time was suspicious for malignancy, patient underwent an electromagnetic navigational bronchoscopy with negative biopsy. A repeat PET scan was actually negative. On 06/19/2020 patient was transferred from [facility] where she went for evaluation of epigastric cramping type pain, nausea and vomiting. Patient had similar symptoms prior to having his cholecystectomy in February of this year she was done at [facility]. His bilirubin was elevated at 5.6, he also had elevated AST, of 104, ALT of 179, and alkaline phosphatase of 260. Elevated white blood count of 22.2, hemoglobin is 14.8, sodium is 135, and the rest of electrolytes and renal profile were unremarkable, plasma lactic acid was 0.8 amylase was 40, lipase was 20. Computed tomography scan was completed at [facility] and reportedly showed a retained gallbladder stone, and patient was transferred to [facility] with gastroenterology consult for possible ERCP. He was started on empiric antibiotics with Rocephin and Flagyl. He is receiving IV hydration with 0.9 normal saline at a rate of 125 ML per hour. Patient is scheduled for ERCP tomorrow on 06/12/2020, echocardiogram was completed for cardiac clearance. Echocardiogram revealed borderline concentric LVH, EF between 55-60%, mild aortic regurgitation, mild aortic stenosis, aortic valve is possibly bicuspid, mild MR, mild TR, moderately severe pulmonary hypertension with PA pressure of 54.8 mmHg. Chest x-ray is pending, patient is currently on room air with pulse ox of 93-99%, hemodynamically she is stable, they have all a low-grade fever earlier today, his no worsening dyspnea, no plates of chest pain, no cough, no wheezing, no evidence of heart failure. The patient is seen today 06/21/2020 in follow-up on the regular medical floor. He is up ambulating in the hallway. Awake and alert in no acute distress. Maintaining good O2 saturations in the 90s on room air. He did undergo ERCP with sphincterotomy, cholangiography and balloon sweep for choledocholelithiasis and cholangitis yesterday. He is doing well and quite anxious to go home. We were following up with the patient due to an enlarging spiculated right hilar node. Objective - Vital Signs Vital signs: Vital Signs Temp 97.9 F 06/21/20 07:43 Pulse 52 L 06/21/20 07:43 Resp 20 06/21/20 08:45 BP 101/52 06/21/20 07:43 Pulse Ox 97 06/21/20 07:43 Intake & Output 06/20/20 06/21/20 06/21/20 18:59 06:59 18:59 Intake Total 525 240 200 Output Total 300 600 Balance 225 -360 200 Weight 79.379 kg Intake: IV 325 Oral 200 240 200 Output: Urine 300 600 Other: Voiding Method Toilet Toilet Toilet Urinal Urinal Urinal # Voids 2 - Exam GENERAL EXAM: Alert, active, very pleasant 69-year-old gentleman, on room air, comfortable in no apparent distress. HEAD: Normocephalic. EYES: Normal reaction of pupils, equal size. NOSE: Clear with pink turbinates. THROAT: No erythema or exudates. NECK: No masses, no JVD. CHEST: No chest wall deformity. LUNGS: Equal air entry with no crackles, wheeze, rhonchi or dullness. CVS: S1 and S2 normal with no audible murmur, regular rhythm. ABDOMEN: No hepatosplenomegaly, normal bowel sounds, no guarding or rigidity. SPINE: No scoliosis or deformity SKIN: No rashes CENTRAL NERVOUS SYSTEM: No focal deficits, tone is normal in all 4 extremities. EXTREMITIES: There is no peripheral edema. No clubbing, no cyanosis. Peripheral pulses are intact. - Labs CBC & Chem 7: 06/21/20 09:44 06/19/20 05:20 Labs: Abnormal Lab Results - Last 24 Hours (Table) 06/21/20 Range/Units 09:44 WBC 11.8 H (3.8-10.6) k/uL RBC 4.16 L (4.30-5.90) m/uL Neutrophils # 9.9 H (1.3-7.7) k/uL Microbiology - Last 24 Hours (Table) 06/20/20 10:15 Urine Culture - Preliminary Urine,Voided Assessment and Plan Assessment: #1. Moderately severe pulmonary hypertension, there is no evidence of significant valvular disease on echocardiogram, will obtain CTA chest to rule out possibility of pulmonary embolism although this is less likely, and obtain follow-up on the right lung lesion since 2018. There is a possibility of underlying COPD due to previous history of smoking #2. Epigastric pain, related to choledocholithiasis, with obstructive jaundice, patient ERCP on 06/20/2020 #3. Elevated transaminases, elevated bilirubin related to obstructive jaundice #4. Leukocytosis, fever, likely related to sepsis related to gallbladder stones #5. Recent history of cholecystectomy in February 2020 #6. Previous history of smoking, in remission, did smoke for 20+ years #7. History of prostate cancer with prostatectomy #7. History of right lower lobe lung lesion and pleural-based spiculated lung nodule measuring 1.4 cm with peripheral spiculation in 2018, status post electromagnetic navigational bronchoscopy with biopsies, that were negative for malignancy, and subsequent PET scan showed no hypermetabolic activity in the ri ght lower lobe nodule or suspicious right hilar lymph node, and the biopsies were negative. Plan: The patient was seen and evaluated by Dr. Vicente Cleared for discharge from the pulmonary standpoint Follow up with Dr. Lawrence in our office in 1 week's time Outpatient workup regarding the enlarging spiculated right lower lobe lung lesion. He verbalized understanding and is agreeable to the plan I, the cosigning physician, performed a history & physical examination of the patient. Lungs sounds are clear. Maintaining good O2 saturations in the 90s on room air. I discussed the assessment and plan of care with my nurse practitioner, Julia Baker. I attest to the above note as dictated by her.
[2020-06-21 16:33] LABS: African American GFR (CKD) 113.2 (60.0-200.0); Anion Gap 7.5 mmol/L (4.00-12.00); BUN/Creat Ratio 37.14 Ratio (12.00-20.00); Calcium 8.1 mg/dL (8.7-10.3); Carbon Dioxide 24.5 mmol/L (21.6-31.8); Magnesium 1.9 mg/dL (1.5-2.4); Non-African American GFR(CKD) 97.7 (60.0-200.0); Potassium 3.9 mmol/L (3.5-5.5)
== END 2020-06-21 12:55 | disposition home or self-care (01) | DRG 872 ==
LOC: EC 04:15 → 4SSUR 05:36
PROVIDERS: ADMIT Internal Medicine; ATTEND Internal Medicine
PROC: 0FC98ZZ Extirpation of Matter from Common Bile Duct, Via Natural or Artificial Opening Endoscopic (ICD-10-PCS; principal; 2020-06-20 10:30)
PROC: BF101ZZ Fluoroscopy of Bile Ducts using Low Osmolar Contrast (ICD-10-PCS; principal; 2020-06-20 10:30)
PROC: 0F798ZZ Dilation of Common Bile Duct, Via Natural or Artificial Opening Endoscopic (ICD-10-PCS; principal; 2020-06-20 10:30)
DX: A41.9 Sepsis, unspecified organism (principal); K80.31 Calculus of bile duct with cholangitis, unspecified, with obstruction; Q23.1 Congenital insufficiency of aortic valve; I27.20 Pulmonary hypertension, unspecified; Z85.46 Personal history of malignant neoplasm of prostate; Z87.891 Personal history of nicotine dependence; Z88.0 Allergy status to penicillin; Z90.49 Acquired absence of other specified parts of digestive tract; Z90.89 Acquired absence of other organs; J44.9 Chronic obstructive pulmonary disease, unspecified; Z90.79 Acquired absence of other genital organ(s); F10.10 Alcohol abuse, uncomplicated; Z88.8 Allergy status to other drugs, medicaments and biological substances; Z80.42 Family history of malignant neoplasm of prostate
CPT/HCPCS: 36415; 43262; 43264; 71046; 71275; 74330; 80048; 80053; 82150; 83605; 83690; 83735; 85025; 87086; 93005; 93306; 96361; 96374; 99285

== ENCOUNTER → 2020-07-10 | Outpatient (CLI) | payer MEDICARE ==
--- NOTE | 2020-07-14 15:55 | PE ---
Nuclear medicine PET/CT HISTORY: Solitary pulmonary nodule, initial Patient received 13 mCi F-18 FDG intravenously in delayed scanning was performed from the skull base to the mid thighs. Localization and attenuation correction CT scan was performed. Correlation to chest CT 06/19/2020 Chest and neck: There is no supraclavicular or cervical adenopathy. No mediastinal, axillar, or hilar adenopathy. The subpleural soft tissue mass in the right lower lobe superior segment shows associate d hypermetabolic uptake measures approximately 2.5 cm. There is no pleural or pericardial effusion. C oronary artery calcifications are present. There is no adrenal mass or suspicious uptake. Patient is post cholecystectomy. No retroperitoneal ad enopathy or ascites. Patient is post cholecystectomy. Osseous structures show no suspicious uptake. Degenerative disc changes and facet arthropathy noted a t the lower lumbar spine. IMPRESSION: Suspicious for bronchogenic carcinoma right lower lobe.
== END | disposition home or self-care (01) ==
LOC: RADPETMAIN 12:43
PROVIDERS: ATTEND Internal Medicine Critical Care Medicine
DX: R91.1 Solitary pulmonary nodule (principal)
CPT/HCPCS: 78815; A9552

== ENCOUNTER 2020-08-06 10:52 | Day surgery (SDC) | payer MEDICARE ==
[2020-08-03 11:24] VITALS: BMI 25.8
[~2020-08-06 10:52] MED LIST changes: +ALBUTEROL NEB (CONC) 2.5 MG/0.5 ML INHALATION ONE; +DEXAMETHASONE SOD PHOSPHATE 4 MG/ML 1 ML VIAL IV ONE; +HYDROmorphone 0.5 MG/0.5 ML SYRINGE IVP PRN; -LACTATED RINGERS 1,000 ML IV ONE; +LIDOCAINE 1% (10MG/ML) FOR IV START INTRADERMA PRN; -LIDOCAINE 2% (PF) 20 MG/ML 2 ML AMP INHALATION ONE; +LIDOCAINE 2% (PF) 20 MG/ML 5 ML VIAL INHALATION ONE; +MIDAZOLAM 2 MG/2 ML VIAL IV PRN; +ONDANSETRON 4 MG/2 ML VIAL IVP ONE; +SODIUM CHLORIDE 0.9% 1,000 ML IV SCH
[2020-08-06] MEDS ORDERED: LIDOCAINE 1% (10MG/ML) FOR IV START INTRADERMA ONE (11:56)
--- NOTE | 2020-08-06 12:43 | CT ---
EXAMINATION TYPE: CT Chest wo con Veran Protocol DATE OF EXAM: 08/06/2020 COMPARISON: PET/CT July 10, 2020 HISTORY: pulmonary nodules, pre Veran procedure CT DLP: 524 mGycm Automated exposure control for dose reduction was used. FINDINGS: Exam is for bronchoscopy planning and not for diagnostic purposes. Mild to moderate underlying emphys ematous change redemonstrated. Persistent 2.5 cm posterior right mid lung nodule corresponding to are a of concern on recent PET/CT series 6 image 22. IMPRESSION: As above.
[2020-08-06] MEDS ORDERED: LIDOCAINE 1% INJ 10MG/ML (20 ML MDV) ONE (13:42)
[2020-08-06] MEDS ORDERED: PROPOFOL 10 MG/ML 20 ML VIAL IV ONE (13:42)
[2020-08-06] MEDS ORDERED: NEOSTIGMINE 1 MG/ML 10 ML VIAL ONE (13:42)
[2020-08-06] MEDS ORDERED: ROCURONIUM 10 MG/ML (10 ML VIAL) IV ONE (13:42)
[2020-08-06] MEDS ORDERED: fentaNYL (PF) 50 MCG/ML 2 ML AMP ONE (13:42)
[2020-08-06] MEDS ORDERED: GLYCOPYRROLATE 0.2 MG/ML 2 ML VIAL ONE (13:42)
[2020-08-06] MEDS ORDERED: SUCCINYLCHOLINE CHLORIDE 100 MG/5 ML SYR IV ONE (13:42)
[2020-08-06] MEDS ORDERED: MIDAZOLAM 2 MG/2 ML VIAL ONE (13:42)
[2020-08-06 14:53] VITALS: TEMP 97.4
--- NOTE | 2020-08-06 15:40 | XR ---
EXAMINATION TYPE: XR chest 1V DATE OF EXAM: 08/06/2020 COMPARISON: 06/19/2020 HISTORY: 69-year-old male with bronchial navigation TECHNIQUE: Single frontal view of the chest is obtained. FINDINGS: Heart borderline in size. Mild interstitial prominence is unchanged. Some mild patchy right basilar o pacity. No sizable effusion. No pneumothorax. IMPRESSION: Borderline heart size and chronic appearing changes. There is mild patchy peripheral right basilar at electasis versus early infiltrate. The known posterior right midlung pulmonary nodule is not well dem onstrated radiographically. No appreciable pneumothorax.
[2020-08-06 16:17] VITALS: BP 129/72; PULSE 68; RESP 16
[2020-08-06 17:22] LABS: Appearance,BF Bloody
[2020-08-06 17:23] LABS: Nucleated Cells, Body Fluid 0 /uL; RBC, Body Fluid 61300 /uL
--- NOTE | 2020-08-06 22:07 | PCN ---
PROCEDURE NOTE PROCEDURE: Electromagnetic navigational bronchoscopy. OPERATORS: 1. Dr. Lawrence. 2. Dr. Baker. 3. Dr. Perez. PREOPERATIVE DIAGNOSIS: Solitary pulmonary nodule, right lower lobe. POSTOPERATIVE DIAGNOSIS: Solitary pulmonary nodule, right lower lobe. PROCEDURE DESCRIPTION: The procedure was done in the endoscopy room #1. It was done under general anesthesia. The anesthesiologist was Dr. Marsha Brown. There was informed consent and universal timeout. After the patient was sedated and anesthetized, the bronchoscope was introduced through the bronchoscope adapter connected to the endotracheal tube. Under electromagnetic guidance, we were able to locate the lesion in the right lower lobe. We did multiple biopsies, brushes, washes and needle biopsies of the lesion. There was minimal bleeding. We ensured hemostasis. The airway examination was otherwise normal. We looked at the right upper lobe and its 3 segments, right middle lobe and its 2 segments, right lower lobe and its 5 segments, left upper lobe proper and its 2 segments, lingula and its 2 segments, and left lower lobe and its 4 segments. There was no dominant mass or tumor. The airways appeared normal otherwise. The patient tolerated the procedure well. The patient will be recovered. There was no immediate complication. A chest x-ray was ordered. MMODL / IJN: [id number] /
== END 2020-08-06 16:19 | disposition home or self-care (01) ==
LOC: ORWHC2ENDO 10:52
PROVIDERS: ATTEND Internal Medicine Critical Care Medicine
DX: R91.1 Solitary pulmonary nodule (principal); E80.6 Other disorders of bilirubin metabolism; Z86.19 Personal history of other infectious and parasitic diseases; Z85.46 Personal history of malignant neoplasm of prostate; Z80.42 Family history of malignant neoplasm of prostate; Z82.49 Family history of ischemic heart disease and other diseases of the circulatory system; Z87.891 Personal history of nicotine dependence; Z90.49 Acquired absence of other specified parts of digestive tract; Z98.890 Other specified postprocedural states; Z90.89 Acquired absence of other organs; Z79.899 Other long term (current) drug therapy
CPT/HCPCS: 87798 ×3; 87496; 87498; 87529; 88104; 88108; 88305; 88173; 89050; 87252; 87502; 87634; 87070; 87205; 87116; 87102; 87206; 71045; 71250; 31628; 31623; 31627; J2250; J2710; J2001; J3010; J0330; J2704

== ENCOUNTER 2020-09-02 08:00 | Day surgery (SDC) | payer MEDICARE ==
[2020-08-31 11:50] VITALS: BMI 25.8
[~2020-09-02 08:00] MED LIST changes: +ACETAMINOPHEN TAB 500 MG TAB PO PRN; -ALBUTEROL NEB (CONC) 2.5 MG/0.5 ML INHALATION ONE; -ATROPINE SULFATE 0.4 MG/ML 1 ML VIAL IM ONE; +HEPARIN SODIUM,PORCINE 5,000 UNIT/ML 1 ML VIAL SQ PRN; -HYDROmorphone 0.5 MG/0.5 ML SYRINGE IVP PRN; -LIDOCAINE 2% (PF) 20 MG/ML 5 ML VIAL INHALATION ONE; -LIDOCAINE VISCOUS 300 MG/15 ML CUP MUCOUS MEM ONE; -ONDANSETRON 4 MG/2 ML VIAL IVP ONE; -SODIUM CHLORIDE 0.9% 1,000 ML IV SCH
[2020-09-02 08:39] VITALS: RESP 16
[2020-09-02] MEDS ORDERED: ONDANSETRON 4 MG/2 ML VIAL ONE (09:08)
[2020-09-02] MEDS ORDERED: MIDAZOLAM 2 MG/2 ML VIAL IV ONE (09:15)
[2020-09-02] MEDS ORDERED: fentaNYL (PF) 50 MCG/ML 2 ML AMP IV ONE (09:15)
--- NOTE | 2020-09-02 09:40 | P.ANPRN ---
Procedure Note - Anesthesia - Nerve Block Performed Bilateral Transversus Abdominis Single Time Out Performed: Yes ([id number]) Date of Procedure: 09/02/20 Procedure Start Time: 09:16 Procedure Stop Time: :22 Location of Patient: PreOp Indication: Acute Post-Operative Pain, Requested by Surgeon Specifically requested for management of pain by DrMarlo: Michael Hughes Sedation Type: Sedate with meaningful contact maintained Preparation: Sterile Prep Position: Supine Catheter: None Needle Types: Pajunk Needle Gauge: 21 Ultrasound used to visualize needle placement: Yes Ultrasound used to observe medication spread: Yes Injectate: 0.5% Ropivacaine (see comment for volume) (15cc each side, 30cc total) Blood Aspirated: No Pain Paresthesia on Injection Noted: No Resistance on Injection: Normal Image Stored and Saved: Yes Events: Uneventful and Well Tolerated
[2020-09-02] MEDS ORDERED: ROPIVACAINE 5 MG/ML 30 ML VIAL ONE (10:31)
[2020-09-02] MEDS ORDERED: SUCCINYLCHOLINE CHLORIDE 100 MG/5 ML SYR IV ONE (10:31)
[2020-09-02] MEDS ORDERED: NEOSTIGMINE 1 MG/ML 10 ML VIAL ONE (10:31)
[2020-09-02] MEDS ORDERED: BUPIVACAINE (PF) 0.25% 30 ML VIAL SQ ONE ×2 (10:31→10:54)
[2020-09-02] MEDS ORDERED: HYDROmorphone (PF) 1 MG/ML ONE (10:31)
[2020-09-02] MEDS ORDERED: ROCURONIUM 10 MG/ML (10 ML VIAL) IV ONE (10:31)
[2020-09-02] MEDS ORDERED: MIDAZOLAM 2 MG/2 ML VIAL ONE (10:31)
[2020-09-02] MEDS ORDERED: LIDOCAINE 1% INJ 10MG/ML (20 ML MDV) ONE (10:31)
[2020-09-02] MEDS ORDERED: fentaNYL (PF) 50 MCG/ML 2 ML AMP ONE (10:31)
[2020-09-02] MEDS ORDERED: KETAMINE 10 MG/ML 20 ML VIAL ONE (10:31)
[2020-09-02] MEDS ORDERED: GLYCOPYRROLATE 0.2 MG/ML 2 ML VIAL ONE (10:31)
[2020-09-02] MEDS ORDERED: PROPOFOL 10 MG/ML 20 ML VIAL IV ONE (10:31)
[2020-09-02] MEDS ORDERED: LACTATED RINGERS 1,000 ML IV ONE ×2 (11:49→14:01)
--- NOTE | 2020-09-02 12:06 | P.GSHP ---
History of Present Illness H&P Date: 09/02/20 Chief Complaint: Umbilical hernia, bilateral inguinal hernia This 69-year-old male who presents today for laparoscopic robotic repair of bilateral we'll hernia and incarcerated umbilical hernia. Patient's previous history robotic prostatectomy. Past Medical History Past Medical History: Cancer, Hypertension, Prostate Disorder Additional Past Medical History / Comment(s): prostate cancer 2001. Hx kidney stone. Donovan inguinal hernias currently. lung nodule biopsy benign History of Any Multi-Drug Resistant Organisms: None Reported Past Surgical History: Cholecystectomy, Prostate Surgery, Tonsillectomy Additional Past Surgical History / Comment(s): prostatectomy, rt hand ringer finger repair, Dr Lawrence - biopsy of lung nodule 2019 via bronchoscopy/benign; Navigational Bronch 08/06/20 - benign. Past Anesthesia/Blood Transfusion Reactions: Previous Problems w/ Anesthesia Additional Past Anesthesia/Blood Transfusion Reaction / Comment(s): "takes a few days to shake the anesthesia," "felt foggy for 1 week." Smoking Status: Former smoker - Past Family History Mother Family Medical History: No Reported History Father Family Medical History: Cancer Additional Family Medical History / Comment(s): prostate Brother(s) Family Medical History: Cancer Additional Family Medical History / Comment(s): prostate cancer Medications and Allergies Home Medications Medication Instructions Recorded Confirmed Type Acetaminophen Tab [Tylenol] 650 mg PO Q4HR PRN tab 06/21/20 09/02/20 Rx buPROPion HCL [Wellbutrin XL] 300 mg PO DAILY 06/24/20 09/02/20 History Multivitamins, Thera [Multivitamin 1 tab PO DAILY 08/03/20 08/31/20 History (formulary)] amLODIPine [Norvasc] 5 mg PO DAILY 08/03/20 09/02/20 History Allergies Allergy/AdvReac Type Severity Reaction Status Date / Time amoxicillin [From Augmentin] Allergy Rash/Hives Verified 09/02/20 08:49 clavulanic acid Allergy Rash/Hives Verified 09/02/20 08:49 [From Augmentin] Penicillins Allergy Rash/Hives Verified 09/02/20 08:49 Surgical - Exam Vital Signs Temp Pulse Resp BP Pulse Ox 97.7 F 63 16 138/81 98 09/02/20 08:37 09/02/20 08:37 09/02/20 08:37 09/02/20 08:37 09/02/20 08:37 - General well developed, well nourished, no distress - Eyes PERRL - ENT normal pinna - Neck no masses - Respiratory normal expansion - Cardiovascular Rhythm: regular - Abdomen Abdomen: soft, non tender Hernia: inguinal (Bilateral inguinal), umbilical (Incarcerated) Assessment and Plan Assessment: Incarcerated umbilical hernia, bilateral inguinal hernia We'll perform laparoscopic robotic-assisted repair.
--- NOTE | 2020-09-02 12:09 | P.OP ---
Date of Procedure: 09/02/20 Preoperative Diagnosis: Incarcerated umbilical hernia Bilateral inguinal hernias Postoperative Diagnosis: Extensive adhesions Incarcerated umbilical hernia Bilateral inguinal hernia Procedure(s) Performed: Laparoscopic lysis of adhesions Laparoscopic robotic bilateral we'll hernia Right cord lipoma excision Partial omentectomy Laparoscopic repair of umbilical hernia Anesthesia: JOSEPH Surgeon: Michael Hughes Estimated Blood Loss (ml): 20 Pathology: other (Incarcerated omentum, right cord lipoma) Condition: stable Disposition: PACU Description of Procedure: Patient's placed on the operating table in supine position. He received general anesthesia. His evidence for repeat sterile fashion. The patient incarcerated buckle hernia. The skin was incised at the umbilicus and using left cautery and sharp dissection the incarcerated omentum was transected and sent to pathology. Through the umbilical hernia opening a 8 mm robotic trochars placed. The abdomen was insufflated. The Laparoscope was placed the peritoneal cavity. And a robotic 8 mm trocar was placed in the right lateral position and then another 8 mm robotic trochars placed in the left lateral position. The original 5 mm trocar was exchanged for a 12 mm trocar. The patient was placed in reverse Trendelenburg and then the patient was docked to the robot. Next the peritoneum over top of the right inguinal hernia was incised and then using blunt and sharp dissection and electrocautery the hernia sac was dissected free from the floor of the inguinal canal. The hernia sac was completely reduced into the peritoneal cavity. A cord lipoma was dissected free from the cord to pathology. And then using the [employer] physician mesh the hernia was repaired. The peritoneum was then sutured with 20V lock suture. Next the peritoneum over top of the left inguinal hernia was incised and then using blunt and sharp dissection and electrocautery the hernia sac was dissected free from the floor of the inguinal canal. The hernia sac was completely reduced into the peritoneal cavity. And then using the [employer] physician mesh the hernia was repaired. The peritoneum was then sutured with 20V lock suture. The patient was then undocked the robot. The needle was withdrawn from the peritoneal cavity. The umbilical hernia site was closed with 0 Ethibond suture passed with a Michael Aguirre suture passer. The laparoscope was withdrawn.. The skin was closed interrupted 3-0 Monocryl suture. Dermabond dressing was applied. Patient was sent to recovery in stable condition.
[2020-09-02 12:13] VITALS: TEMP 97
[2020-09-02] MEDS: HYDROmorphone 0.5 MG/0.5 ML SYRINGE IVP PRN ×4 (12:50→13:20)
[2020-09-02 15:34] VITALS: BP 129/78; PULSE 72
== END 2020-09-02 16:20 | disposition home or self-care (01) ==
LOC: OR 08:00
PROVIDERS: ATTEND Surgery
DX: K42.0 Umbilical hernia with obstruction, without gangrene (principal); K40.20 Bilateral inguinal hernia, without obstruction or gangrene, not specified as recurrent; D17.6 Benign lipomatous neoplasm of spermatic cord; K66.0 Peritoneal adhesions (postprocedural) (postinfection); I10 Essential (primary) hypertension; Z85.46 Personal history of malignant neoplasm of prostate; Z87.442 Personal history of urinary calculi; Z87.891 Personal history of nicotine dependence; Z88.0 Allergy status to penicillin; Z88.1 Allergy status to other antibiotic agents; Z90.79 Acquired absence of other genital organ(s); Z90.49 Acquired absence of other specified parts of digestive tract
CPT/HCPCS: 64488; 88304; 88302; 49587; 49650; C1781 ×2; J2250; J1644; J1100; J2710; J0690; J2405; J2001; J3010; J1170 ×2; J2795; J0330; J2704

== ENCOUNTER 2022-03-21 08:35 | Day surgery (SDC) | payer MEDICARE ==
[2022-03-21] MEDS ORDERED: ALPRAZolam 0.25 MG TAB PO STA (09:00)
[2022-03-21 09:12] VITALS: RESP 16; TEMP 98.7
[2022-03-21 09:21] LABS: Mean Platelet Volume 7.9; Platelet Count 285 k/uL (150-450)
--- NOTE | 2022-03-21 10:48 | XR ---
EXAMINATION TYPE: XR chest 1V DATE OF EXAM: 03/21/2022 HISTORY: Post lung biopsy COMPARISON: 08/06/2020 TECHNIQUE: Single view of the chest is submitted. FINDINGS: Demonstrated are scattered senescent parenchymal change. There is a small 5-10% right-sided pneumothorax. Right infrahilar mass is noted. The heart is stable. Hilar and mediastinal structures are within normal limits. Degenerative changes are seen of the dorsal spine. IMPRESSION: 1. There is a small 5-10% right-sided pneumothorax. Right infrahilar mass is noted.
--- NOTE | 2022-03-21 10:54 | CT ---
EXAMINATION TYPE: CT biopsy lung RT DATE OF EXAM: 03/21/2022 COMPARISON: 02/28/2022 HISTORY: Right lung mass CT DLP: 1119 mGycm The procedure is discussed with the patient, the risks, complications, benefits and alternatives, wer e discussed and any questions were answered. Informed consent was obtained. The patient is placed p glenis on the CT table, prepped and draped in the usual sterile fashion. Utilizing a 20-gauge core biopsy needle access into the right lower lobe mass was achieved with a sin gle sample obtained. Patient had approximately 5-10% pneumothorax post for sample procedure was disco ntinued. Pathology pending. All elements of maximal barrier in sterile technique were utilized. Th e patient remained stable throughout the procedure. IMPRESSION: 1. Successful CT guided core biopsy right lung mass. There is approximately 5-10% pneumothorax whic h will be monitored. Patient stable with no current complaints
--- NOTE | 2022-03-21 13:01 | XR ---
EXAMINATION TYPE: XR chest 1V portable DATE OF EXAM: 03/21/2022 HISTORY: 2 hour post lung biopsy COMPARISON: Same day chest x-ray 10:37 AM TECHNIQUE: Single view of the chest is submitted. FINDINGS: Stable 5-10% right apical pneumothorax. Right infrahilar mass redemonstrated. There is no evidence for focal infiltrate. The heart is stable. Hilar and mediastinal structures are within normal limits. Degenerative changes are seen of the dorsal spine. IMPRESSION: 1. Stable 5-10% right apical pneumothorax.
--- NOTE | 2022-03-21 14:24 | XR ---
EXAMINATION TYPE: XR chest 1V DATE OF EXAM: 03/21/2022 HISTORY: Post-Lung Biopsy COMPARISON: Same day 12:47 PM TECHNIQUE: Single view of the chest is submitted. FINDINGS: Stable right apical 5-10% pneumothorax. Right infrahilar mass redemonstrated. The heart is stable. Hilar and mediastinal structures are within normal limits. Degenerative changes are seen of the dorsal spine. IMPRESSION: 1. Stable right apical 5-10% pneumothorax.
[2022-03-21 18:23] VITALS: BP 111/71; PULSE 74
== END 2022-03-21 14:47 | disposition home or self-care (01) ==
LOC: RADPROMAIN 08:35
PROVIDERS: ATTEND Internal Medicine Critical Care Medicine
DX: R91.8 Other nonspecific abnormal finding of lung field (principal); J93.9 Pneumothorax, unspecified; C61 Malignant neoplasm of prostate
CPT/HCPCS: 32408; 36415; 71045; 77012; 85049; 85610; 88305

== ENCOUNTER → 2023-04-08 | Outpatient (CLI) | payer MEDICARE ==
--- NOTE | 2023-04-09 19:51 | PE ---
EXAMINATION TYPE: PET CT fusion skull to thigh DATE OF EXAM: 04/08/2023 CLINICAL INDICATION:Male, 72 years old with history of Q85.2 NEUROFIBRAMATOSIS; pulmonary mass TECHNIQUE: Following the intravenous administration of 12.60 mCi of F-18 FDG, whole body images are performed from the skull base to the midthigh. Images are reviewed on the computer in the coronal, axial, and sagittal planes. Reconstructed rotating images are created on independent workstation and reviewed on the computer. A non-contrast CT is performed in conjunction with the PET scan. Glucose level 108 mg/dL CT DLP: 518 mGycm, Automated exposure control for dose reduction was used. COMPARISON: CT 03/21/2022, 03/12/2022, PET/CT 07/10/2020, FINDINGS: Mediastinal SUV mean is 1.6. Hepatic parenchyma SUV mean is 2.3. SKULL BASE AND NECK: No suspicious radiotracer activity. CHEST, MEDIASTINUM, AND HILAR REGION: * Right lower lung pulmonary mass has increased in size now measuring 4.6 x 3.4 cm previously 2.6 x 1.6 cm. Max SUV 12.0. * Right pulmonary hilum lymph nodes next the 4.2. Measurements difficult without IV contrast. ABDOMEN AND PELVIS: * Right adrenal nodule measuring 2.2 x 1.7 cm Max SUV 5.4. MUSCULOSKELETAL STRUCTURES: Abnormal FDG activity of the osseous structures examples include: * T7 vertebrae measuring 13 mm and max SUV 4.1 * Left rib 9 posteriorly max SUV 3.3 * Right rib 11 posteriorly max SUV 3.2. Left sacrum max SUV 4.3. OTHER CT: Atherosclerosis of the carotid bifurcations and coronary arteries. There is moderate aortic valve leaflet calcifications. Hepatic steatosis. Nonobstructing 3 mm calculi bilaterally in the carolin l collecting systems. No obstructive uropathy. Small right fat-containing inguinal hernia. Scattered colonic diverticula. Fat-containing umbilical hernia. Appendix is normal. 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
== END | disposition home or self-care (01) ==
LOC: RADPETMAIN 07:20
DX: C79.71 Secondary malignant neoplasm of right adrenal gland (principal); C78.01 Secondary malignant neoplasm of right lung; C80.1 Malignant (primary) neoplasm, unspecified; J98.4 Other disorders of lung; Q85.02 Neurofibromatosis, type 2; R91.1 Solitary pulmonary nodule
CPT/HCPCS: 78815; A9552

== ENCOUNTER 2025-01-02 15:30 | Inpatient (IN) | payer MEDICARE ==
[2025-01-02 16:53] LABS: Basophils # (A) 0.02 10*3/uL (0.00-0.10); Basophils % (A) 0.2 %; Eosinophils # (A) 0.01 10*3/uL (0.04-0.35); Eosinophils % (A) 0.1 %; HCT 30.5 % (39.6-50.0); HGB 10.1 g/dL (13.0-17.0); Lymphocytes # (A) 0.27 10*3/uL (0.90-5.00); Lymphocytes % (A) 3.3 %; MCH 33.1 pg (27.0-32.0); MCHC 33.1 g/dL (32.0-37.0); Mean Platelet Volume 9.6 fL (9.5-12.2); Monocytes # (A) 0.08 10*3/uL (0.20-1.00); Neutrophils # (A) 7.73 10*3/uL (1.80-7.70); Neutrophils % (A) 94.9 %; Platelet Count 285 10*3/uL (140-440); RBC 3.05 10*6/uL (4.40-5.60); RDW 13.6 % (11.5-14.5); WBC 8.15 10*3/uL (4.50-10.00)
--- NOTE | 2025-01-02 17:05 | ED ---
General Adult HPI - General Chief complaint: Shortness of Breath Stated complaint: TIP Time Seen by Provider: 01/02/25 15:40 Source: patient, RN notes reviewed, old records reviewed Mode of arrival: EMS Limitations: no limitations - History of Present Illness Initial comments: This is a 74-year-old male who presents to the emergency department from [facility]. Patient has a stage IV lung cancer. Patient arrived there with difficulty breathing and was hypoxic so they worked the patient up and determined the patient had pneumonia The patient to be sent to the emergency department our facility and to see Dr. Lawrence. Patient was on 6 L and was satting about 92 to 93% according to the ER at [facility] who gave us report prior to the patient's arrival. Patient states that he is normally on 2 L at home if he is not doing anything he moves up to 3 to 4 L if he is walking around. Patient denies any chest pain or palpitation. Patient currently on oxygen does not feel that bad. - Related Data Home Medications Medication Instructions Recorded Confirmed Ascorbic Acid [Vitamin C] 1,000 mg PO DAILY 01/02/25 01/02/25 Aspirin EC [Ecotrin Low Dose] 81 mg PO DAILY 01/02/25 01/02/25 Cholecalciferol [Vitamin D3 (125 125 mcg PO DAILY 01/02/25 01/02/25 Mcg = 5000 Iu)] Magnesium Oxide [Magnesium] 500 mg PO DAILY 01/02/25 01/02/25 Multivitamins, Thera [Multivitamin 1 tab PO DAILY 01/02/25 01/02/25 (formulary)] Allergies Allergy/AdvReac Type Severity Reaction Status Date / Time amoxicillin [From Augmentin] Allergy Rash/Hives Verified 01/02/25 16:32 clavulanic acid Allergy Rash/Hives Verified 01/02/25 16:32 [From Augmentin] Penicillins Allergy Rash/Hives Verified 01/02/25 16:32 Review of Systems ROS Statement: Those systems with pertinent positive or pertinent negative responses have been documented in the HPI. ROS Other: All systems not noted in ROS Statement are negative. Past Medical History Past Medical History: Cancer, Hypertension, Pneumonia, Prostate Disorder Additional Past Medical History / Comment(s): prostate cancer 2001. Hx kidney stone. Donovan inguinal hernias currently. lung nodule biopsy benign History of Any Multi-Drug Resistant Organisms: None Reported Past Surgical History: Cholecystectomy, Hernia Repair, Prostate Surgery, Tonsillectomy Additional Past Surgical History / Comment(s): prostatectomy, rt hand ringer finger repair, Dr Lawrence - biopsy of lung nodule 2019 via bronchoscopy/benign; Navigational Bronch 08/06/20 - benign, hernia repair times 3 Past Anesthesia/Blood Transfusion Reactions: Previous Problems w/ Anesthesia Additional Past Anesthesia/Blood Transfusion Reaction / Comment(s): "takes a few days to shake the anesthesia," "felt foggy for 1 week." Past Psychological History: No Psychological Hx Reported Smoking Status: Former smoker Past Alcohol Use History: Daily Past Drug Use History: Marijuana - Past Family History Mother Family Medical History: No Reported History Father Family Medical History: Cancer Additional Family Medical History / Comment(s): prostate Brother(s) Family Medical History: Cancer Additional Family Medical History / Comment(s): prostate cancer General Exam - General Exam Comments Initial Comments: GENERAL: Patient is well-developed and well-nourished. Patient is nontoxic and well- hydrated and is in mild distress. ENT: Neck is soft and supple. No significant lymphadenopathy is noted. Oropharynx is clear. Moist mucous membranes. Neck has full range of motion without eliciting any pain. EYES: The sclera were anicteric and conjunctiva were pink and moist. Extraocular movements were intact and pupils were equal round and reactive to light. Eyelid s were unremarkable. PULMONARY: Patient has crackles throughout the right lung and at the base of the left lung CARDIOVASCULAR: There is a regular rate and rhythm without any murmurs gallops or rubs. ABDOMEN: Soft and nontender with normal bowel sounds. SKIN: Skin is clear with no lesions or rashes and otherwise unremarkable. NEUROLOGIC: Patient is alert and oriented x3. Cranial nerves II through XII are grossly intact. Motor and sensory are also intact. Normal speech, volume and content. Symmetrical smile. MUSCULOSKELETAL: Normal extremities with adequate strength and full range of motion. LYMPHATICS: No significant lymphadenopathy is noted PSYCHIATRIC: Normal psychiatric evaluation. Limitations: no limitations Course Vital Signs 01/02/25 01/02/25 01/02/25 15:36 15:38 15:45 Temperature 98 F Pulse Rate 66 64 Respiratory 26 H 26 H 26 H Rate Blood Pressure 112/54 112/54 O2 Sat by Pulse 94 L 95 Oximetry 01/02/25 01/02/25 16:35 17:22 Temperature Pulse Rate 58 L Respiratory 18 16 Rate Blood Pressure 103/56 O2 Sat by Pulse 98 Oximetry Medical Decision Making - Medical Decision Making EKG is interpreted by myself and EKG shows sinus bradycardia 59 bpm OR interval 168 QRS of 92 QT interval is 435 QTc is 435. Patient's EKG shows no ST segment ovation Was pt. sent in by a medical professional or institution (CINDI Biggs, MONEY POSITION OFFICER, urgent care, hospital, or penitentiary...) When possible be specific @ -I spoke with [place] physician in the ER prior to the patient's arrival. Did you speak to anyone other than the patient for history (EMS, parent, family, police, friend...)? What history was obtained from this source @ -No Did you review nursing and triage notes (agree or disagree)? Why? @ -I reviewed and agree with nursing and triage notes Were old charts reviewed (outside hosp., previous admission, EMS record, old EKG, old radiological studies, urgent care reports/EKG's, penitentiary records)? Report findings @ -No old charts were reviewed Differential Diagnosis? @ -Differential Dyspnea: Coronary syndrome, arrhythmia, tamponade, asthma, COPD, pulmonary embolism, pneumonia, pneumothorax, pulmonary effusion, anaphylaxis, diabetic ketoacidosis, flailed chest, pulmonary contusion, diaphragmatic rupture, anemia, neuromuscular, this is not meant to be an all-inclusive list. EKG interpreted by me (3pts min.). @ -As above X-rays interpreted by me (1pt min.). @ -None done CT interpreted by me (1pt min.). @ -None done U/S interpreted by me (1pt. min.). @ -None done What testing was considered but not performed or refused? (CT, X-rays, U/S, labs)? Why? @ -None What meds were considered but not given or refused? Why? @ -None Did you discuss the management of the patient with other professionals (professionals i.e. CINDI Biggs, [employer]ONEY POSITION OFFICER, lab, RT, psych nurse, medical social worker, body painter, teacher, money position officer, case hardener)? Give summary @ -I spoke with [facility] agreed to admit the patient Was smoking cessation discussed for >3mins.? @ -No Was critical care preformed (if so, how long)? @ -No Were there social determinants of health that impacted care today? How? (Homelessness, low income, unemployed, alcoholism, drug addiction, transportation, low edu. Level, literacy, decrease access to med. care, [facility], rehab)? @ -No Was there de-escalation of care discussed even if they declined (Discuss DNR or withdrawal of care, Hospice)? DNR status @ -No What co-morbidities impacted this encounter? (DM, HTN, Smoking, COPD, CAD, Cancer, CVA, ARF, Chemo, Hep., AIDS, mental health diagnosis, sleep apnea, morbid obesity)? @ -None Was patient admitted / discharged? Hospital course, mention meds given and route, prescriptions, significant lab abnormalities, going to OR and other pertinent info. @ -Patient's radiological studies were unable to be uploaded so another chest x- ray was done here shows multifocal pneumonia. Patient will be admitted to Dr. Castañeda's group and pulmonology will be consulted Undiagnosed new problem with uncertain prognosis? @ -No Drug Therapy requiring intensive monitoring for toxicity (Heparin, Nitro, Insulin, Cardizem)? @ -No Were any procedures done? @ -No Diagnosis/symptom? @ -Pneumonia Acute, or Chronic, or Acute on Chronic? @ -Acute on Uncomplicated (without systemic symptoms) or Complicated (systemic symptoms)? @ -Complicate Side effects of treatment? @ -No Exacerbation, Progression, or Severe Exacerbation? @ -No Poses a threat to life or bodily function? How? (Chest pain, [place], [place], pneumonia, PE, COPD, DKA, ARF, appy, cholecystitis, CVA, Diverticulitis, Homicidal, Suicidal, threat to staff... and all critical care pts) @ -Yes this can lead to sepsis and endorgan dysfunction - Lab Data Result diagrams: 01/02/25 16:35 01/02/25 16:35 Lab Results 01/02/25 01/02/25 01/02/25 Range/Units 16:35 16:35 16:35 WBC 8.15 (4.50-10.00) 10*3/uL RBC 3.05 L (4.40-5.60) 10*6/uL Hgb 10.1 L (13.0-17.0) g/dL Hct 30.5 L (39.6-50.0) % MCV 100.0 H (80.0-97.0) fL MCH 33.1 H (27.0-32.0) pg MCHC 33.1 (32.0-37.0) g/dL Plt Count 285 (140-440) 10*3/uL MPV 9.6 (9.5-12.2) fL Immature Gran % (Auto) 0.5 % Neutrophils % 94.9 % Lymphocytes % 3.3 % Monocytes % 1.0 % Eosinophils % 0.1 % Basophils % 0.2 % Immature Gran # 0.04 (0.00-0.04) 10*3/uL Neutrophils # 7.73 H (1.80-7.70) 10*3/uL Lymphocytes # 0.27 L (0.90-5.00) 10*3/uL Monocytes # 0.08 L (0.20-1.00) 10*3/uL Eosinophils # 0.01 L (0.04-0.35) 10*3/uL Basophils # 0.02 (0.00-0.10) 10*3/uL Sodium 138 (137-145) mmol/L Potassium 4.5 (3.5-5.1) mmol/L Chloride 108 H (98-107) mmol/L Carbon Dioxide 26 (22-30) mmol/L Anion Gap 4 mmol/L BUN 12 (9-20) mg/dL Creatinine 0.68 (0.66-1.25) mg/dL Est GFR (CKD-EPI)AfAm >90 (>60 ml/min/1.73 sqM) Est GFR (CKD-EPI)NonAf >90 (>60 ml/min/1.73 sqM) Glucose 166 H (74-99) mg/dL Plasma Lactic Acid Patrick 1.6 (0.7-2.0) mmol/L Calcium 7.7 L (8.4-10.2) mg/dL Total Bilirubin 0.4 (0.2-1.3) mg/dL AST 27 (17-59) U/L ALT 17 (4-49) U/L Alkaline Phosphatase 44 (38-126) U/L Total Protein 6.1 L (6.3-8.2) g/dL Albumin 3.3 L (3.5-5.0) g/dL Disposition Clinical Impression: Pneumonia Disposition: ADMITTED IP TO THIS HOSP Time of Disposition: 17:25
[2025-01-02 17:07] LABS: ALT 17 U/L (4-49); AST 27 U/L (17-59); African American GFR (CKD) >90 (>60 ml/min/1.73 sqM); Albumin 3.3 g/dL (3.5-5.0); Alkaline Phosphatase 44 U/L (38-126); Anion Gap 4 mmol/L; Blood Urea Nitrogen 12 mg/dL (9-20); Calcium 7.7 mg/dL (8.4-10.2); Carbon Dioxide 26 mmol/L (22-30); Chloride 108 mmol/L (98-107); Glucose 166 mg/dL (74-99); Non-African American GFR(CKD) >90 (>60 ml/min/1.73 sqM); Potassium 4.5 mmol/L (3.5-5.1); Sodium 138 mmol/L (137-145); Total Bilirubin 0.4 mg/dL (0.2-1.3); Total Protein 6.1 g/dL (6.3-8.2)
--- NOTE | 2025-01-02 17:10 | XR ---
EXAMINATION TYPE: XR chest 2V DATE OF EXAM: 01/02/2025 4:48 PM COMPARISON: Chest radiographs from 03/21/2022 CLINICAL INDICATION: Male, 74 years old with history of Difficulty breathing ; [facility] TECHNIQUE: XR chest 2V Frontal and lateral views of the chest. FINDINGS: Lungs/Pleura: Multifocal airspace opacities. No evidence of pneumothorax or pleural effusion. Pulmonary vascularity: Unremarkable. Heart/mediastinum: Cardiomediastinal silhouette is unremarkable. Musculoskeletal: No acute osseous pathology. Other findings: None Lines/Tubes: IMPRESSION: multifocal airspace opacities.Correlate for pulmonary edema versus pneumonia. [facility], , 01/02/2025 5:08 PM
[2025-01-02] MEDS ORDERED: IPRATROPIUM-ALBUTEROL 3 ML NEB INHALATION PRN (17:25)
[2025-01-02] MEDS ORDERED: PNEUMONIA PROTOCOL UTILIZED 1 EACH MISC PO PRN (17:25)
[2025-01-02] MEDS: IPRATROPIUM-ALBUTEROL 3 ML NEB INHALATION SCH (20:15)
[2025-01-02] MEDS: ACETAMINOPHEN TAB 500 MG TAB PO PRN (20:27)
[2025-01-03] MEDS: CEFEPIME 2 GM in SODIUM CHLORIDE 0.9% 100 ML IVPB SCH (00:05)
[2025-01-03] MEDS ORDERED: RX INFO: IV CONTRAST WAS GIVEN 1 EACH MISC MISCELLANE PRN (07:48)
[2025-01-03] MEDS ORDERED: HYDROmorphone 0.5 MG/0.5 ML SYRINGE IVP PRN (08:33)
[2025-01-03] MEDS: AZITHROMYCIN 500 MG in SODIUM CHLORIDE 0.9% 250 ML IVPB SCH (09:14)
[2025-01-03] MEDS: methylPREDNISolone SOD SUCCI 40 MG/ML 1 ML VIAL IV SCH (09:16)
[2025-01-03] MEDS: PANTOPRAZOLE 40 MG TABLET PO SCH (09:20)
[2025-01-03] MEDS: HYDROmorphone 1 MG/ML 1 ML SYRINGE IVP PRN (09:22)
[2025-01-03] MEDS: ENOXAPARIN 40 MG/0.4 ML SYRINGE SQ SCH (09:25)
--- NOTE | 2025-01-03 12:35 | XR ---
EXAMINATION TYPE: XR chest 1V DATE OF EXAM: 01/03/2025 6:11 AM COMPARISON: 01/02/2025 CLINICAL INDICATION: Male, 74 years old with history of pneumonia, TECHNIQUE: XR chest 1V view(s) obtained. FINDINGS: The heart size is borderline prominent. The pulmonary vasculature is normal. Patchy bilateral infiltrates are present. Correlate for pneumonia and atypical pneumonia. Follow-up i s recommended. Pulmonary edema could be considered. IMPRESSION: 1. Patchy bilateral lung infiltrates. Correlate for pneumonia. Consider atypical pneumonia and pulmon massiel edema. [facility], , 01/03/2025 12:33 PM
--- NOTE | 2025-01-03 16:58 | P.CNPUL ---
History of Present Illness Consult date: 01/03/25 Requesting physician: Peter E Tevin Reason for consult: dyspnea, hypoxemia, abnormal CXR/CT Chief complaint: Shortness of breath History of present illness: This is a 74-year-old male patient with a known history of metastatic lung cancer to the bone. Most recent PET scan from here was March 2023 that showed progression of disease with increasing right lower lobe pulmonary mass size and FDG activity with metastatic disease to the right pulmonary hilum, scattered throughout the osseous structures and right adrenal gland. For the past several weeks he has had increasing shortness of breath. He has been in [facility] he is also been in [facility] treated for pneumonias. He was at [facility] yesterday and was transferred here for further evaluation. CT scan of the chest there revealed significant groundglass opacities bilaterally. Possible lymphangitic carcinomatosis. He states he had been on immunotherapy in the past with Zometa and Keytruda. He had most recently been on chemotherapy in October 2024. He is also had previous radiation treatments to the back. He was following with an oncologist in [place]. Chest x-ray reveals patchy bilateral infiltrates. White count 8.1. Hemoglobin 10.1. Platelets 285. Sodium 138. Potassium 4.5. Bicarb 26. BUN 12. Creatinine 0.68. Glucose 166. proBNP 1670. Procalcitonin negative at 0.20 urine Legionella screen negative. He is requiring 15 L high flow nasal cannula to maintain O2 saturations. He is seen in consultation in the emergency department. He is quite hypoxic in the 70s on 15 L high flow nasal cannula. He is being transitioned to Airvo high flow oxygen. He does state he will not be placed on life support. Review of Systems REVIEW OF SYSTEMS: CONSTITUTIONAL: Denies any recent significant weight loss or weight gain. EYES: Denies change in vision. EARS, NOSE, MOUTH, THROAT: Denies headaches, denies sore throat. CARDIOVASCULAR: Denies chest pain, palpitations or syncopal episodes. RESPIRATORY: Positive for shortness of breath, cough, congestion no hemoptysis. GASTROINTESTINAL: Denies change in appetite, denies abdominal pain GENITOURINARY: Denies hematuria, denies infections. MUSKULOSKELETAL: Positive for significant back pain. INTEGUMENTARY: Denies rash, denies eczema. NEUROLOGICAL: Denies recent memory loss, no recent seizure activity. PSYCHIATRIC: Denies anxiety, denies depression. HEMATOLOGIC/LYMPHATIC: Denies anemia, denies enlarged lymph nodes. Past Medical History Past Medical History: Cancer, Hypertension, Pneumonia, Prostate Disorder Additional Past Medical History / Comment(s): prostate cancer 2001. Hx kidney stone. Donovan inguinal hernias currently. lung nodule biopsy benign History of Any Multi-Drug Resistant Organisms: None Reported Past Surgical History: Cholecystectomy, Hernia Repair, Prostate Surgery, Tonsillectomy Additional Past Surgical History / Comment(s): prostatectomy, rt hand ringer finger repair, Dr Lawrence - biopsy of lung nodule 2019 via bronchoscopy/benign; Navigational Bronch 08/06/20 - benign, hernia repair times 3, lung cancer stage IV Past Anesthesia/Blood Transfusion Reactions: Previous Problems w/ Anesthesia Additional Past Anesthesia/Blood Transfusion Reaction / Comment(s): "takes a few days to shake the anesthesia," "felt foggy for 1 week." Past Psychological History: No Psychological Hx Reported Additional Psychological History / Comment(s): Denies, states takes Rx for "winter blues" Smoking Status: Former smoker Past Alcohol Use History: Daily Additional Past Alcohol Use History / Comment(s): smoked on/off for 20 yrs, 1ppd, quit 12/2017; drinks around 6 beers per day Past Drug Use History: Marijuana Additional Drug Use History / Comment(s): marijuana brownie on occaision - Past Family History Mother Family Medical History: No Reported History Father Family Medical History: Cancer Additional Family Medical History / Comment(s): prostate Brother(s) Family Medical History: Cancer Additional Family Medical History / Comment(s): prostate cancer Medications and Allergies Home Medications Medication Instructions Recorded Confirmed Type Ascorbic Acid [Vitamin C] 1,000 mg PO DAILY 01/02/25 01/02/25 History Aspirin EC [Ecotrin Low Dose] 81 mg PO DAILY 01/02/25 01/02/25 History Cholecalciferol [Vitamin D3 (125 125 mcg PO DAILY 01/02/25 01/02/25 History Mcg = 5000 Iu)] Magnesium Oxide [Magnesium] 500 mg PO DAILY 01/02/25 01/02/25 History Multivitamins, Thera [Multivitamin 1 tab PO DAILY 01/02/25 01/02/25 History (formulary)] Allergies Allergy/AdvReac Type Severity Reaction Status Date / Time amoxicillin [From Augmentin] Allergy Rash/Hives Verified 01/02/25 16:32 clavulanic acid Allergy Rash/Hives Verified 01/02/25 16:32 [From Augmentin] Penicillins Allergy Rash/Hives Verified 01/02/25 16:32 Physical Exam Vitals: Vital Signs Temp Pulse Resp BP Pulse Ox FiO2 01/03/25 15:38 74 01/03/25 15:24 78 01/03/25 14:02 88 40 H 135/80 96 01/03/25 11:48 88 01/03/25 11:34 78 96 95 01/03/25 10:44 79 40 H 109/68 95 01/03/25 09:35 95 01/03/25 09:34 77 26 H 105/67 94 L 01/03/25 09:31 30 H 64 L 01/03/25 09:10 72 L 01/03/25 09:06 97.7 F 72 18 108/61 80 L 01/03/25 07:55 68 01/03/25 07:43 68 01/03/25 06:00 60 20 126/71 97 01/03/25 05:40 96 01/03/25 05:37 84 L 01/03/25 05:30 93 L 01/03/25 04:00 58 L 26 H 118/61 96 01/03/25 02:00 52 L 24 102/56 96 01/03/25 00:00 65 19 102/57 97 01/02/25 22:00 64 28 H 107/61 95 01/02/25 20:26 64 94 L 01/02/25 20:17 62 01/02/25 20:00 63 24 103/72 94 L 01/02/25 18:00 65 16 140/60 96 01/02/25 17:22 58 L 16 103/56 98 GENERAL EXAM: Alert, pleasant 74-year-old male patient, placed on Airvo high flow oxygen, in mild respiratory distress. HEAD: Normocephalic. EYES: Normal reaction of pupils, equal size. NOSE: Clear with pink turbinates. THROAT: No erythema or exudates. NECK: No masses, no JVD. CHEST: No chest wall deformity. LUNGS: Equal air entry with bilateral scattered rhonchi. CVS: S1 and S2 normal with no audible murmur, regular rhythm. ABDOMEN: No hepatosplenomegaly, normal bowel sounds, no guarding or rigidity. SPINE: No scoliosis or deformity SKIN: No rashes CENTRAL NERVOUS SYSTEM: No focal deficits, tone is normal in all 4 extremities. EXTREMITIES: There is no peripheral edema. No clubbing, no cyanosis. Per ipheral pulses are intact. Results - Laboratory Findings CBC and BMP: 01/02/25 16:35 01/02/25 16:35 Abnormal lab findings: Abnormal Labs 01/02/25 01/02/25 16:35 16:35 RBC 3.05 L Hgb 10.1 L Hct 30.5 L MCV 100.0 H MCH 33.1 H Neutrophils # 7.73 H Lymphocytes # 0.27 L Monocytes # 0.08 L Eosinophils # 0.01 L Chloride 108 H Glucose 166 H Calcium 7.7 L Total Protein 6.1 L Albumin 3.3 L - Diagnostic Findings Chest x-ray: image reviewed Assessment and Plan Assessment: Acute on chronic hypoxemic respiratory failure secondary to metastatic lung cancer and possible lymphangitic carcinomatosis. Procalcitonin negative. Treated with multiple rounds of antibiotics at previous facilities without improvement Metastatic stage IV lung cancer involving the bones and adrenal gland. Most recent chemotherapy in October 2024. He had previously refused chemotherapy and been on immunotherapy in the form of Zometa and Keytruda. He has previously received radiation to the back. Follows with medical oncology in [place] Chronic hypoxemic respiratory failure maintained on oxygen in the outpatient setting Previous history of prostate Pulmonary hypertension Previous COVID-19 infection Former smoker Plan: The patient was seen and evaluated Chest x-ray, labs and medications reviewed CT scan report from [facility] reviewed Add Airvo high flow nasal cannula at 60 L and 95% FiO2 Titrate down the FiO2 as tolerated Continue cefepime and azithromycin for now Add DuoNeb and elations Add Symbicort inhalations Add IV Solu-Medrol Add IV diuretics Lovenox for DVT prophylaxis Assure adequate pain control Overall prognosis is guarded Requesting DNR/DNI CODE STATUS We will continue to follow and make further recommendations based on his clinical status I have personally seen and examined the patient, performed the documentation and the assessment and plan as written. Number of minutes spent on the visit: 20 Dictation was produced using [employer]ether[employer] dictation software. Please excuse any grammatical, word or spelling errors. Time with Patient: Greater than 30
[2025-01-03] MEDS: FUROSEMIDE 20 MG TAB PO SCH (18:04)
--- NOTE | 2025-01-03 19:09 | P.HPIM ---
History of Present Illness H&P Date: 01/03/25 Chief Complaint: Short of breath Pleasant 74-year-old patient follows with office of Chris TENA. Chronic medical conditions include stage IV lung cancer, hypertension, prostate cancer in 2001, Patient was diagnosed with stage IV lung cancer over a year ago. Follows with , oncologist from [facility] oncologist. Patient says his better status from the bone and adrenal glands have improved. Also lung cancer shrunk a bit. He does take oxygen 2 L at home. Patient about 5 weeks ago was a second hospital that diagnosed with pneumonia. Was sent to rehab at [facility]. His commissioned security officer Dr. LAWRENCE. Patient now presents with cough congested chest with phlegm but not able to expectorate. Chills. Appetite is okay. Having bowel movements. Patient has generalized pain all over. In the ER patient is currently on high flow with 60l and 100% oxygen.. Review of systems: GEN.: Tired, chills EYES: None HEENT: None NECK: None RESPIRATORY: As above CARDIOVASCULAR: None GASTROINTESTINAL: None GENITOURINARY: None MUSCULOSKELETAL: None LYMPHATICS: None HEMATOLOGICAL: None PSYCHIATRY: None NEUROLOGICAL: None Social history: Patient smoked on and off for 20 years. Stopped smoking about 7 years ago. Was drinking about 6 beers a day. Sometimes does marijuana brownie. Lives alone. Used to work with dairy products Physical examination: VITAL SIGNS: 98, 66, 26, 912/54, 94% 6 L GENERAL: BMI 27.3, reclining in bed short of breath. EYES: Pupils equal. Conjunctiva rossi l. HEENT: External appearance of nose and ears normal, oral cavity grossly normal. High flow nasal cannula NECK: JVD unable to assess; masses not palpable. HEART: First and second heart sounds are normal; no edema. LUNGS: Respiratory rate increased, diminished breath sounds not able to speak in full sentences. Accessory muscles are working.. ABDOMEN: Soft, nontender, liver spleen not palpable, no masses palpable. PSYCH: [Alert and oriented x3; mood and affect bit anxious MUSCULOSKELETAL:No Clubbing/cyanosis;muscles-grossly intact NEUROLOGICAL: Cranial nerves grossly intact; no facial asymmetry, power and sensation grossly intact. LYMPHATICS: No lymph nodes palpable in the axilla and neck INVESTIGATIONS, reviewed in the clinical context: January 02, 2025: White count 8.1 hemoglobin 10.1 platelets 285 sodium 138 potassium 4.5 BUN 12 creatinine 0.68 proBNP 1670 procalcitonin less than 0.20 EKG tracing personally reviewed by me-normal sinus rhythm. Chest x-ray film personally reviewed by me-PA film. Scattered shadows/infiltrate Assessment plan: - Bilateral pneumonia. Suspect gram-negative organism. IV cefepime. Zithromax - Acute COPD exacerbation in a prior smoker Symbicort 160/4.5. IV Solu-Medrol. DuoNeb. - Acute hypoxic respiratory failure from COPD exacerbation pneumonia Currently on Airvo with 60% oxygen flow rate and 100% FiO2 - Chronic hypoxic respiratory failure from COPD lung cancer Does use oxygen at home 3 L - Stage IV lung cancer. Had bone metastasis and renal parameters status. The latter 2 of which have resolved per the patient. Follows with , from [place] - Normocytic anemia of chronic disease/malignancy - Mild protein calorie malnutrition decreased oral intake Ensure 1 can 3 times daily - Generalized achiness pain all over the body. Likely multifactorial Analgesics - DNR Care was discussed with the patient. Pulmonary and oncology consulted Past Medical History Past Medical History: Cancer, Hypertension, Pneumonia, Prostate Disorder Additional Past Medical History / Comment(s): prostate cancer 2001. Hx kidney stone. Donovan inguinal hernias currently. lung nodule biopsy benign History of Any Multi-Drug Resistant Organisms: None Reported Past Surgical History: Cholecystectomy, Hernia Repair, Prostate Surgery, Tonsillectomy Additional Past Surgical History / Comment(s): prostatectomy, rt hand ringer finger repair, Dr Lawrence - biopsy of lung nodule 2019 via bronchoscopy/benign; Navigational Bronch 08/06/20 - benign, hernia repair times 3, lung cancer stage IV Past Anesthesia/Blood Transfusion Reactions: Previous Problems w/ Anesthesia Additional Past Anesthesia/Blood Transfusion Reaction / Comment(s): "takes a few days to shake the anesthesia," "felt foggy for 1 week." Past Psychological History: No Psychological Hx Reported Additional Psychological History / Comment(s): Denies, states takes Rx for "winter blues" Smoking Status: Former smoker Past Alcohol Use History: Daily Additional Past Alcohol Use History / Comment(s): smoked on/off for 20 yrs, 1ppd, quit 12/2017; drinks around 6 beers per day Past Drug Use History: Marijuana Additional Drug Use History / Comment(s): marijuana brownie on occaision - Past Family History Mother Family Medical History: No Reported History Father Family Medical History: Cancer Additional Family Medical History / Comment(s): prostate Brother(s) Family Medical History: Cancer Additional Family Medical History / Comment(s): prostate cancer Medications and Allergies Home Medications Medication Instructions Recorded Confirmed Type Ascorbic Acid [Vitamin C] 1,000 mg PO DAILY 01/02/25 01/02/25 History Aspirin EC [Ecotrin Low Dose] 81 mg PO DAILY 01/02/25 01/02/25 History Cholecalciferol [Vitamin D3 (125 125 mcg PO DAILY 01/02/25 01/02/25 History Mcg = 5000 Iu)] Magnesium Oxide [Magnesium] 500 mg PO DAILY 01/02/25 01/02/25 History Multivitamins, Thera [Multivitamin 1 tab PO DAILY 01/02/25 01/02/25 History (formulary)] Allergies Allergy/AdvReac Type Severity Reaction Status Date / Time amoxicillin [From Augmentin] Allergy Rash/Hives Verified 01/02/25 16:32 clavulanic acid Allergy Rash/Hives Verified 01/02/25 16:32 [From Augmentin] Penicillins Allergy Rash/Hives Verified 01/02/25 16:32 Physical Exam Vitals: Vital Signs Temp Pulse Resp BP Pulse Ox FiO2 01/03/25 10:44 79 40 H 109/68 95 01/03/25 09:35 95 01/03/25 09:34 77 26 H 105/67 94 L 01/03/25 09:31 30 H 64 L 01/03/25 09:10 72 L 01/03/25 09:06 97.7 F 72 18 108/61 80 L 01/03/25 07:55 68 01/03/25 07:43 68 01/03/25 06:00 60 20 126/71 97 01/03/25 05:40 96 01/03/25 05:37 84 L 01/03/25 05:30 93 L 01/03/25 04:00 58 L 26 H 118/61 96 01/03/25 02:00 52 L 24 102/56 96 01/03/25 00:00 65 19 102/57 97 01/02/25 22:00 64 28 H 107/61 95 01/02/25 20:26 64 94 L 01/02/25 20:17 62 01/02/25 20:00 63 24 103/72 94 L 01/02/25 18:00 65 16 140/60 96 01/02/25 17:22 58 L 16 103/56 98 01/02/25 16:35 18 01/02/25 15:45 26 H 01/02/25 15:38 64 26 H 112/54 95 01/02/25 15:36 98 F 66 26 H 112/54 94 L Intake and Output 01/02/25 01/03/25 01/03/25 22:59 06:59 14:59 Other: Weight 83.915 kg Results CBC & Chem 7: 01/02/25 16:35 01/02/25 16:35 Labs: Abnormal Lab Results - Last 24 Hours (Table) 01/02/25 01/02/25 Range/Units 16:35 16:35 RBC 3.05 L (4.40-5.60) 10*6/uL Hgb 10.1 L (13.0-17.0) g/dL Hct 30.5 L (39.6-50.0) % MCV 100.0 H (80.0-97.0) fL MCH 33.1 H (27.0-32.0) pg Neutrophils # 7.73 H (1.80-7.70) 10*3/uL Lymphocytes # 0.27 L (0.90-5.00) 10*3/uL Monocytes # 0.08 L (0.20-1.00) 10*3/uL Eosinophils # 0.01 L (0.04-0.35) 10*3/uL Chloride 108 H (98-107) mmol/L Glucose 166 H (74-99) mg/dL Calcium 7.7 L (8.4-10.2) mg/dL Total Protein 6.1 L (6.3-8.2) g/dL Albumin 3.3 L (3.5-5.0) g/dL Thrombosis Risk Factor Assmnt - Choose All That Apply Any of the Below Risk Factors Present?: Yes Each Factor Represents 1 point: Obesity (BMI >25) Other Risk Factors: Yes Each Risk Factor Represents 2 Points: Age 61-74 years Other congenital or acquired thrombophilia - If yes, enter type in comment: No Thrombosis Risk Factor Assessment Total Risk Factor Score: 3 Thrombosis Risk Factor Assessment Level: Moderate Risk
--- NOTE | 2025-01-03 19:23 | P.CONS ---
History of Present Illness - Reason for Consult Consult date: 01/03/25 metastatic lung cancer Requesting physician: Elmer Vicente - Chief Complaint SOB - History of Present Illness Patient is a 74-year-old male with a history of metastatic lung cancer. Patient presented to [facility] for progressing shortness of breath. Patient reports over the last 5 weeks he has been in the the hospital for issues with shortness of breath. He was discharged 1 week ago and then represented for shortness of breath at which time he was transferred to [facility] for further evaluation and management. Patient is treated for his cancer in [place] with Dr. Orosco. He states he is currently on chemotherapy and last received treatment in October. He is unsure which chemotherapy he is on or how many treatments he has had. He states he was previously on Keytruda prior to that. He states since July has had multiple hospitalizations for infections with COVID, RSV and pneumonia. Upon admit chest x-ray showed multifocal airspace opacities and is currently being treated with IV antibiotics for suspected pneumonia. Pulm following, he has been started on IV steroids and bronchodilators. Upon review of EMR PET/CT on 04/08/2023 showed progression of disease with increasing right lower lobe pulmonary mass size and FDG activity with metastatic disease in the right pulmonary hilum, scattered throughout the osseous structures and right adrenal gland. Review of Systems 10 point ROS is negative except as stated in the HPI Past Medical History Past Medical History: Cancer, Hypertension, Pneumonia, Prostate Disorder Additional Past Medical History / Comment(s): prostate cancer 2001. Hx kidney stone. Donovan inguinal hernias currently. lung nodule biopsy benign History of Any Multi-Drug Resistant Organisms: None Reported Past Surgical History: Cholecystectomy, Hernia Repair, Prostate Surgery, Tonsi llectomy Additional Past Surgical History / Comment(s): prostatectomy, rt hand ringer finger repair, Dr Lawrence - biopsy of lung nodule 2019 via bronchoscopy/benign; Navigational Bronch 08/06/20 - benign, hernia repair times 3, lung cancer stage IV Past Anesthesia/Blood Transfusion Reactions: Previous Problems w/ Anesthesia Additional Past Anesthesia/Blood Transfusion Reaction / Comm: "takes a few days to shake the anesthesia," "felt foggy for 1 week." Past Psychological History: No Psychological Hx Reported Additional Psychological History / Comment(s): Denies, states takes Rx for "winter blues" Smoking Status: Former smoker Past Alcohol Use History: Daily Additional Past Alcohol Use History / Comment(s): smoked on/off for 20 yrs, 1ppd, quit 12/2017; drinks around 6 beers per day Past Drug Use History: Marijuana Additional Drug Use History / Comment(s): marijuana brownie on occaision - Past Family History Mother Family Medical History: No Reported History Father Family Medical History: Cancer Additional Family Medical History / Comment(s): prostate Brother(s) Family Medical History: Cancer Additional Family Medical History / Comment(s): prostate cancer Medications and Allergies Home Medications Medication Instructions Recorded Confirmed Type Ascorbic Acid [Vitamin C] 1,000 mg PO DAILY 01/02/25 01/02/25 History Aspirin EC [Ecotrin Low Dose] 81 mg PO DAILY 01/02/25 01/02/25 History Cholecalciferol [Vitamin D3 (125 125 mcg PO DAILY 01/02/25 01/02/25 History Mcg = 5000 Iu)] Magnesium Oxide [Magnesium] 500 mg PO DAILY 01/02/25 01/02/25 History Multivitamins, Thera [Multivitamin 1 tab PO DAILY 01/02/25 01/02/25 History (formulary)] Allergies Allergy/AdvReac Type Severity Reaction Status Date / Time amoxicillin [From Augmentin] Allergy Rash/Hives Verified 01/02/25 16:32 clavulanic acid Allergy Rash/Hives Verified 01/02/25 16:32 [From Augmentin] Penicillins Allergy Rash/Hives Verified 01/02/25 16:32 Physical Exam Vitals: Vital Signs Temp Pulse Resp BP Pulse Ox FiO2 01/03/25 11:48 88 01/03/25 11:34 78 96 95 01/03/25 10:44 79 40 H 109/68 95 01/03/25 09:35 95 01/03/25 09:34 77 26 H 105/67 94 L 01/03/25 09:31 30 H 64 L 01/03/25 09:10 72 L 01/03/25 09:06 97.7 F 72 18 108/61 80 L 01/03/25 07:55 68 01/03/25 07:43 68 01/03/25 06:00 60 20 126/71 97 01/03/25 05:40 96 01/03/25 05:37 84 L 01/03/25 05:30 93 L 01/03/25 04:00 58 L 26 H 118/61 96 01/03/25 02:00 52 L 24 102/56 96 01/03/25 00:00 65 19 102/57 97 01/02/25 22:00 64 28 H 107/61 95 01/02/25 20:26 64 94 L 01/02/25 20:17 62 01/02/25 20:00 63 24 103/72 94 L 01/02/25 18:00 65 16 140/60 96 01/02/25 17:22 58 L 16 103/56 98 01/02/25 16:35 18 01/02/25 15:45 26 H 01/02/25 15:38 64 26 H 112/54 95 01/02/25 15:36 98 F 66 26 H 112/54 94 L Intake and Output 01/02/25 01/03/25 01/03/25 22:59 06:59 14:59 Other: Weight 83.915 kg - Constitutional General appearance: average body habitus, no acute distress - EENT Eyes: anicteric sclerae, EOMI ENT: hearing grossly normal - Respiratory on high flow O2 Respiratory: bilateral: diminished - Cardiovascular skin warm and dry - Gastrointestinal General gastrointestinal: soft, no tenderness - Integumentary Integumentary: no cyanotic, no jaundiced - Musculoskeletal Musculoskeletal: generalized weakness - Psychiatric Psychiatric: A&O x's 3 Results CBC & Chem 7: 01/02/25 16:35 01/02/25 16:35 Labs: Abnormal Lab Results - Last 24 Hours (Table) 01/02/25 01/02/25 Range/Units 16:35 16:35 RBC 3.05 L (4.40-5.60) 10*6/uL Hgb 10.1 L (13.0-17.0) g/dL Hct 30.5 L (39.6-50.0) % MCV 100.0 H (80.0-97.0) fL MCH 33.1 H (27.0-32.0) pg Neutrophils # 7.73 H (1.80-7.70) 10*3/uL Lymphocytes # 0.27 L (0.90-5.00) 10*3/uL Monocytes # 0.08 L (0.20-1.00) 10*3/uL Eosinophils # 0.01 L (0.04-0.35) 10*3/uL Chloride 108 H (98-107) mmol/L Glucose 166 H (74-99) mg/dL Calcium 7.7 L (8.4-10.2) mg/dL Total Protein 6.1 L (6.3-8.2) g/dL Albumin 3.3 L (3.5-5.0) g/dL Chest x-ray: report reviewed Assessment and Plan (1) Lung cancer Current Visit: Yes Status: Acute Priority: High Code(s): C34.90 - MALIGNANT NEOPLASM OF UNSP PART OF UNSP BRONCHUS OR LUNG SNOMED Code(s): 540394425 (2) Pneumonia Current Visit: Yes Status: Acute Priority: High Code(s): J18.9 - PNEUMONIA, UNSPECIFIED ORGANISM SNOMED Code(s): 727805528 Plan: Pneumonia, SOB: Patient presented to [facility] for progressing shortness of breath. Patient reports over the last 5 weeks he has been in the hospital for issues with shortness of breath. He was discharged 1 week ago and then representing for shortness of breath at which time he was transferred to [facility] for further evaluation and management. He states since July has had multiple hospitalizations for infections with COVID, RSV and pneumonia. -Upon admit chest x-ray showed multifocal airspace opacities and is currently being treated with IV antibiotics for suspected pneumonia. -Pulm following, he has been started on IV steroids and bronchodilators -Due to reported history of treatment with immunotherapy, may be component of penumonitis. If pt doesn't show improvement on abx over the next couple days, may need to consider CT chest to r/o IO induced pneumonitis. However, pt is currently on IV steroids, solumedrol 40mg q6hrs which would also treat an underlying possible pneumonitis -Will continue to follow Metastatic lung cancer: History of metastatic lung cancer. Patient is treated for his cancer in [place] with Dr. Orosco. He states he is currently on chemotherapy and last received treatment in October, which has been held due to multiple hospitalizations and breathing difficulties. He is unsure which chemotherapy he is on or how many treatments he has had. He states he was previously on Keytruda prior to that. -Upon review of EMR, PET/CT on 04/08/2023 showed progression of disease with increasing right lower lobe pulmonary mass size and FDG activity with metastatic disease in the right pulmonary hilum, scattered throughout the osseous structures and right adrenal gland. -Will request records from his oncologist -Continue f/u with primary oncologist upon discharge for further recommendations/management
[2025-01-03] MEDS: SYMBICORT 160-4.5 MCG INHALER INHALATION SCH (19:45)
[2025-01-03 21:02] LABS: Glucose,Whole Blood 214 mg/dL (70-110)
[2025-01-03] MEDS ORDERED: DEXTROSE 50% SYRINGE 50 ML IVP PRN ×2 (21:38)
[2025-01-03] MEDS: INSULIN LISPRO (HumaLOG) 100 UNIT/ML 10 mL VL SQ SCH (21:50)
[2025-01-04 03:57] VITALS: TEMP 97.9
[2025-01-04 05:33] LABS: Glucose,Whole Blood 183 mg/dL (70-110)
[2025-01-04] MEDS ORDERED: INSULIN LISPRO (HumaLOG) 100 UNIT/ML 10 mL VL SQ SCH (07:30)
[2025-01-04] MEDS: FUROSEMIDE 10 MG/ML 2 ML VIAL IV SCH (09:33)
[2025-01-04] MEDS: ASPIRIN 81 MG PO SCH (10:36)
[2025-01-04] MEDS: MULTIVITAMINS, THERA 1 EACH TAB PO SCH (10:36)
[2025-01-04] MEDS: ASCORBIC ACID 500 MG TAB PO SCH (10:36)
[2025-01-04] MEDS: MAGNESIUM OXIDE 400 MG TAB PO SCH (10:36)
[2025-01-04] MEDS: CHOLECALCIFEROL 125 MCG (5000 IU) TABLET PO SCH (10:36)
[2025-01-04 11:40] LABS: Glucose,Whole Blood 177 mg/dL (70-110)
[2025-01-04] MEDS: LORazepam 1 MG/0.5 ML VIAL IV PRN (12:59)
[2025-01-04] MEDS ORDERED: HYDROmorphone 1 MG/ML 1 ML SYRINGE IVP STA (13:28)
--- NOTE | 2025-01-04 14:12 | P.PN ---
Subjective Progress Note Date: 01/04/25 Principal diagnosis: Acute on chronic hypoxic respiratory failure secondary to metastatic stage IV lung cancer This is a 74-year-old male patient with a known history of metastatic lung cancer to the bone. Most recent PET scan from here was March 2023 that showed progression of disease with increasing right lower lobe pulmonary mass size and FDG activity with metastatic disease to the right pulmonary hilum, scattered throughout the osseous structures and right adrenal gland. For the past several weeks he has had increasing shortness of breath. He has been in [place] he is also been in [facility] treated for pneumonias. He was at [place] yesterday and was transferred here for further evaluation. CT scan of the chest there revealed significant groundglass opacities bilaterally. Possible lymphangitic carcinomatosis. He states he had been on immunotherapy in the past with Zometa and Keytruda. He had most recently been on chemotherapy in October 2024. He is also had previous radiation treatments to the back. He was following with an oncologist in [place]. Chest x-ray reveals patchy bilateral infiltrates. White count 8.1. Hemoglobin 10.1. Platelets 285. Sodium 138. Potassium 4.5. Bicarb 26. BUN 12. Creatinine 0.68. Glucose 166. proBNP 1670. Procalcitonin negative at 0.20 urine Legionella screen negative. He is requiring 15 L high flow nasal cannula to maintain O2 saturations. He is seen in consultation in the emergency department. He is quite hypoxic in the 70s on 15 L high flow nasal cannula. He is being transitioned to Airvo high flow oxygen. He does state he will not be placed on life support. Seen today on 01/04/2025, patient continues to have profound shortness of breath, on Airvo at 94% and flow at 60 L/min he is also on a high flow nasal cannula, not making much improvement. Patient is very clear about his CODE STATUS, and I discussed with him today the option of comfort care measures. Patient is willing to proceed with comfort care, wondering if he could have comfort care at home, however considering the amount of oxygen he is on it is almost impossible to arrange for comfort care at home with that much oxygen on board. Objective - Vital Signs Vital signs: Vital Signs Temp 97.9 F 01/04/25 03:56 Pulse 106 H 01/04/25 09:40 Resp 36 H 01/04/25 08:00 BP 122/76 01/04/25 08:00 Pulse Ox 81 L 01/04/25 12:32 FiO2 94 01/04/25 12:32 Intake & Output 01/03/25 01/04/25 01/04/25 18:59 06:59 18:59 Intake Total 240 Output Total 1200 600 Balance -960 -600 Weight 83.5 kg Intake: Oral 240 Output: Urine 1200 600 Other: Voiding Method Urinal Urinal Urinal - Exam GENERAL EXAM: 74-year-old white male in moderate respiratory distress with any activity. HEAD: Normocephalic. EYES: Normal reaction of pupils, equal size. NOSE: Clear with pink turbinates. THROAT: No erythema or exudates. NECK: No masses, no JVD. CHEST: No chest wall deformity. LUNGS: Equal air entry with bilateral scattered rhonchi. CVS: S1 and S2 normal with no audible murmur, regular rhythm. ABDOMEN: No hepatosplenomegaly, normal bowel sounds, no guarding or rigidity. SKIN: No rashes CENTRAL NERVOUS SYSTEM: No focal deficits, tone is normal in all 4 extremities. EXTREMITIES: There is no peripheral edema. No clubbing, no cyanosis. Peripheral pulses are intact. - Labs CBC & Chem 7: 01/02/25 16:35 01/02/25 16:35 Labs: Abnormal Lab Results - Last 24 Hours (Table) 01/03/25 01/04/25 01/04/25 Range/Units 21:00 05:31 11:38 POC Glucose (mg/dL) 214 H 183 H 177 H (70-110) mg/dL Assessment and Plan Assessment: Impression: Acute on chronic hypoxemic respiratory failure secondary to metastatic lung cancer and possible lymphangitic carcinomatosis. Procalcitonin negative. Treated with multiple rounds of antibiotics at previous facilities without improvement Metastatic stage IV lung cancer involving the bones and adrenal gland. Most recent chemotherapy in October 2024. He had previously refused chemotherapy and been on immunotherapy in the form of Zometa and Keytruda. He has previously received radiation to the back. Follows with medical oncology in [place] Chronic hypoxemic respiratory failure maintained on oxygen in the outpatient setting Previous history of prostate Pulmonary hypertension Previous COVID-19 infection Former smoker Recommendation: Explained to the patient that his condition is still Discussed option of comfort care, and the patient is willing to proceed We will consult hospice/go to comfort care Prognosis is extremely poor Time with Patient: Less than 30
[2025-01-04 17:31] VITALS: BP 110/68; PULSE 104; RESP 35
--- NOTE | 2025-01-04 18:19 | P.DS ---
Providers Date of admission: 01/02/25 17:25 Expected date of discharge: 01/04/25 () Attending physician: Aleksandr Fritz Consults: 01/02/25 17:25 Consult Physician Routine Consulting Provider: Elmer Vicente Consult Reason/Comments: Pneumonia Do you want consulting provider notified?: Yes 01/03/25 08:38 Consult Physician Routine Consulting Provider: Aarti Fofana Consult Reason/Comments: lung ca w mets Do you want consulting provider notified?: Yes Primary care physician: [facility] Course: Chief Complaint: Short of breath Pleasant 74-year-old patient follows with office of Chris TENA. Chronic medical conditions include stage IV lung cancer, hypertension, prostate cancer in 2001, Patient was diagnosed with stage IV lung cancer over a year ago. Follows with , oncologist from [facility] oncologist. Patient says his better status from the bone and adrenal glands have improved. Also lung cancer shrunk a bit. He does take oxygen 2 L at home. Patient about 5 weeks ago was a second hospital that diagnosed with pneumonia. Was sent to rehab at [facility]. His ice scraper Dr. LAWRENCE. Patient now presents with cough congested chest with phlegm but not able to expectorate. Chills. Appetite is okay. Having bowel movements. Patient has generalized pain all over. In the ER patient is currently on high flow with 60l and 100% oxygen.. : Patient was seen this afternoon. Very short of breath. On Airvo. Able to answer questions. Patient's son at the bedside. Earlier Dr. Vicente at talked him about hospice. Patient currently not able to take anything by mouth. Rather anxious. Getting pain. Medications given for the same. Agreeable to hospice. Patient's 2 other sons are coming from out of state Patient rapidly deteriorated. And Current medications reviewed Social history: Patient smoked on and off for 20 years. Stopped smoking about 7 years ago. Was drinking about 6 beers a day. Sometimes does marijuana brownie. Lives alone. 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 Chest x-ray film personally reviewed by me-PA film. Scattered shadows/infiltrate Cause of : Lung cancer Assessment plan: - Bilateral pneumonia. Suspect gram-negative organism. IV cefepime. Zithromax - Acute COPD exacerbation in a prior smoker: Not improving Symbicort 160/4.5. IV Solu-Medrol. DuoNeb. - Acute hypoxic respiratory failure from COPD exacerbation pneumonia: Worsening Currently on Airvo with 60% oxygen flow rate and 100% FiO2 - Chronic hypoxic respiratory failure from COPD lung cancer Does use oxygen at home 3 L - Stage IV lung cancer. Had bone metastasis and renal parameters status. The latter 2 of which have resolved per the patient. Follows with , from [place] - Normocytic anemia of chronic disease/malignancy - Mild protein calorie malnutrition decreased oral intake Ensure 1 can 3 times daily - Generalized achiness pain all over the body. Likely multifactorial Analgesics - DNR, hospice Advance care planning [January 04, 2025] This was discussed in detail with the patient. Patient's son and his present. Medications for pain and anxiety discussed. Oxygen support was discussed. Hospice been consulted. GIP and other options discussed depending how patient may be doing. Questions answered. Time spent for this about 25 minutes Disposition: Past Medical History Past Medical History: Cancer, Hypertension, Pneumonia, Prostate Disorder Additional Past Medical History / Comment(s): prostate cancer 2001. Hx kidney stone. Donovan inguinal hernias currently. lung nodule biopsy benign History of Any Multi-Drug Resistant Organisms: None Reported Past Surgical History: Cholecystectomy, Hernia Repair, Prostate Surgery, Tonsillectomy Additional Past Surgical History / Comment(s): prostatectomy, rt hand ringer finger repair, Dr Lawrence - biopsy of lung nodule 2019 via bronchoscopy/benign; Navigational Bronch 08/06/20 - benign, hernia repair times 3, lung cancer stage IV Past Anesthesia/Blood Transfusion Reactions: Previous Problems w/ Anesthesia Additional Past Anesthesia/Blood Transfusion Reaction / Comment(s): "takes a few days to shake the anesthesia," "felt foggy for 1 week." Past Psychological History: No Psychological Hx Reported Additional Psychological History / Comment(s): Denies, states takes Rx for "winter blues" Smoking Status: Former smoker Past Alcohol Use History: Daily Additional Past Alcohol Use History / Comment(s): smoked on/off for 20 yrs, 1ppd, quit 12/2017; drinks around 6 beers per day Past Drug Use History: Marijuana Additional Drug Use History / Comment(s): marijuana brownie on occaision Plan - Discharge Summary Discharge Rx Participant: No New Discharge Prescriptions: No Action Cholecalciferol [Vitamin D3 (125 Mcg = 5000 Iu)] 125 mcg PO DAILY Magnesium Oxide [Magnesium] 500 mg PO DAILY Aspirin EC [Ecotrin Low Dose] 81 mg PO DAILY Ascorbic Acid [Vitamin C] 1,000 mg PO DAILY Multivitamins, Thera [Multivitamin (formulary)] 1 tab PO DAILY Discharge Medication List Ascorbic Acid [Vitamin C] 1,000 mg PO DAILY 01/02/25 [History] Aspirin EC [Ecotrin Low Dose] 81 mg PO DAILY 01/02/25 [History] Cholecalciferol [Vitamin D3 (125 Mcg = 5000 Iu)] 125 mcg PO DAILY 01/02/25 [History] Magnesium Oxide [Magnesium] 500 mg PO DAILY 01/02/25 [History] Multivitamins, Thera [Multivitamin (formulary)] 1 tab PO DAILY 01/02/25 [History] Follow up Appointment(s)/Referral(s): Nonstaff,Physician [REFERRING] - 1-2 days Discharge Disposition: - Preliminary Cause of Preliminary Cause of : Lung cancer
== END 2025-01-04 16:26 | disposition expired | DRG 177 ==
LOC: EC 15:30 → 5NMEDONC 17:25 → 3SCARD 01-03 05:43
PROVIDERS: ADMIT Hospitalist; ATTEND Hospitalist
DX: J15.69 Pneumonia due to other Gram-negative bacteria (principal); J96.21 Acute and chronic respiratory failure with hypoxia; C79.71 Secondary malignant neoplasm of right adrenal gland; C78.00 Secondary malignant neoplasm of unspecified lung; C79.51 Secondary malignant neoplasm of bone; E44.1 Mild protein-calorie malnutrition; C34.90 Malignant neoplasm of unspecified part of unspecified bronchus or lung; D63.0 Anemia in neoplastic disease; J44.0 Chronic obstructive pulmonary disease with (acute) lower respiratory infection; I27.20 Pulmonary hypertension, unspecified; I10 Essential (primary) hypertension; J44.1 Chronic obstructive pulmonary disease with (acute) exacerbation; Z51.5 Encounter for palliative care; Z66 Do not resuscitate; Z79.82 Long term (current) use of aspirin; Z85.118 Personal history of other malignant neoplasm of bronchus and lung; Z85.46 Personal history of malignant neoplasm of prostate; Z86.16 Personal history of COVID-19; Z87.442 Personal history of urinary calculi; Z87.891 Personal history of nicotine dependence; Z92.26 Personal history of immune checkpoint inhibitor therapy; Z92.3 Personal history of irradiation; Z99.81 Dependence on supplemental oxygen; Z68.27 Body mass index [BMI] 27.0-27.9, adult; Z88.1 Allergy status to other antibiotic agents; Z88.0 Allergy status to penicillin; Z88.8 Allergy status to other drugs, medicaments and biological substances; Z87.19 Personal history of other diseases of the digestive system; Z87.01 Personal history of pneumonia (recurrent)
CPT/HCPCS: 36415; 71045; 71046; 80053; 83036; 83605; 83880; 84145; 85025; 87449; 94640; 96365; 96366; 96367; 96372; 96375; 96376; 99285